=== PATIENT | male | born 1965 | race Caucasian/White ===

== ENCOUNTER → 2018-03-15 14:51 | Outpatient (POV) | payer BC, SELFPAY ==
[2018-03-15 15:13] VITALS: BP 157/88; PULSE 102; RESP 18; O2SAT 98
--- NOTE | 2018-03-16 08:55 | HMH.PMCON ---
Assessment and Plan (1) Left hip pain Current visit: Yes Status: Chronic Category: Medical Code(s): M25.552 - Pain in left hip - Assessment and plan all Dx Assessment and Plan for all problems:: Patient has an appointment with his surgeon this week. Patient states that he was going to be getting a PICC line in order to get long-term antibiotics. Patient and I discussed potential treatment in the future such as DRG stimulation however this will be unable to take place until he is fully healed. Patient states he understands. Patient was given information on this. Patient has been a call us when he needs us. Patient states that his tramadol is taking care of the majority of his pain and his surgeon can write pain medicine as needed. This note was dictated using voice recognition software and may contain errors or omissions HPI - Data of Consult Consult date: 03/15/18 Requesting Physician: Penelope Albrecht APRN Primary Care Provider: Ivon Brewster MD Family Provider: Ivon Brewster MD - Consult Narrative Reason for consult: Back pain and left hip pain History of present illness: Mr. Birch is a 52 year old male who presents for consultation in regards to mainly his left hip pain. Patient has had multiple hip replacements. Patient is currently preparing for long-term antibiotics. Patient has a open wound on his left hip. Patient is going to be seeing the surgeon in regards to this. Patient rates his pain 5 out of 10. Patient is currently being medically managed with tramadol. Patient states that that does help alleviate some of his pain. Patient has had injections in his hip in the past with little to no relief. Patient has done physical therapy and massage therapy. Patient has also had nerve conduction studies in his left leg with a diagnosis of neuropathy. Patient's tried and failed Lortab, anti-inflammatories, gabapentin. CC: Penelope Albrecht APRN [facility] History I have reviewed the patient's past medical history: Yes Medical History: Reports:: Diabetes Mellitus Type 1 Laterality Cases: Left: Total Hip Replacement - *Social History Educational Level: Completed College Smoking Status: Never smoker Alcohol Intake: never Occupational Status: employed Housing: house Household Members: other - Psychiatric History Expresses thoughts of harming self/others: None Suicide Plan Description: No Plan Review of Systems - Review of Systems ROS General: no recent weight change, no fever, no sleep disturbances Respiratory: no cough, no shortness of air, no recurring pulmonary infections Cardiovascular/Peripheral Vascular: No chest pain, No palpitations, no edema, no shortness of breath. Gastrointestinal: no incontinence, normal bowel movements reported Genitourinary: no incontinence Musculoskeletal: Left hip pain Psychiatric: normal mood/ affect Neurological: Weakness in left lower extremity, [denies balance issues] Meds Allergies Allergy/AdvReac Type Severity Reaction Status Date / Time No Known Allergies Allergy Unverified 09/15/17 14:38 Objective Vital signs: Pulse Resp BP Pulse Ox 102 H 18 157/88 98 03/15/18 15:13 03/15/18 15:13 03/15/18 15:13 03/15/18 15:13 Narrative: Physical Exam General: Alert and oriented x3, no acute distress, pleasant and cooperative, [on room air] Lungs: Resps E/U, Symmetrical chest expansion, Eyes: PERRL Musculoskeletal: Flexion and extension of lumbar spine somewhat guarded secondary to pain, deep tendon reflexes normal, strength in upper and lower extremities [5/5], [abnormal gait noted] Skin: Patient has open wound to left hip. It is draining clear fluid. 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
--- NOTE | 2018-03-16 08:59 | P.CONS_ITS ---
Assessment and Plan (1) Left hip pain Current visit: Yes Status: Chronic Category: Medical Code(s): M25.552 - Pain in left hip - Assessment and plan all Dx Assessment and Plan for all problems:: Patient has an appointment with his surgeon this week. Patient states that he was going to be getting a PICC line in order to get long-term antibiotics. Patient and I discussed potential treatment in the future such as DRG stimulation however this will be unable to take place until he is fully healed. Patient states he understands. Patient was given information on this. Patient has been a call us when he needs us. Patient states that his tramadol is taking care of the majority of his pain and his surgeon can write pain medicine as needed. This note was dictated using voice recognition software and may contain errors or omissions HPI - Data of Consult Consult date: 03/15/18 Requesting Physician: Penelope Albrecht APRN Primary Care Provider: Ivon Brewster MD Family Provider: Ivon Brewster MD - Consult Narrative Reason for consult: Back pain and left hip pain History of present illness: Mr. Birch is a 52 year old male who presents for consultation in regards to mainly his left hip pain. Patient has had multiple hip replacements. Patient is currently preparing for long-term antibiotics. Patient has a open wound on his left hip. Patient is going to be seeing the surgeon in regards to this. Patient rates his pain 5 out of 10. Patient is currently being medically managed with tramadol. Patient states that that does help alleviate some of his pain. Patient has had injections in his hip in the past with little to no relief. Patient has done physical therapy and massage therapy. Patient has also had nerve conduction studies in his left leg with a diagnosis of neuropathy. Patient's tried and failed Lortab, anti-inflammatories, gabapentin. CC: Penelope Albrecht APRN [facility] History I have reviewed the patient's past medical history: Yes Medical History: Reports:: Diabetes Mellitus Type 1 Laterality Cases: Left: Total Hip Replacement - *Social History Educational Level: Completed College Smoking Status: Never smoker Alcohol Intake: never Occupational Status: employed Housing: house Household Members: other - Psychiatric History Expresses thoughts of harming self/others: None Suicide Plan Description: No Plan Review of Systems - Review of Systems ROS General: no recent weight change, no fever, no sleep disturbances Respiratory: no cough, no shortness of air, no recurring pulmonary infections Cardiovascular/Peripheral Vascular: No chest pain, No palpitations, no edema, no shortness of breath. Gastrointestinal: no incontinence, normal bowel movements reported Genitourinary: no incontinence Musculoskeletal: Left hip pain Psychiatric: normal mood/ affect Neurological: Weakness in left lower extremity, [denies balance issues] Meds Allergies Allergy/AdvReac Type Severity Reaction Status Date / Time No Known Allergies Allergy Unverified 09/15/17 14:38 Objective Vital signs: Pulse Resp BP Pulse Ox 102 H 18 157/88 98 03/15/18 15:13 03/15/18 15:13 03/15/18 15:13 03/15/18 15:13 Narrative: Physical Exam General: Alert and oriented x3, no acute distress, pleasant and cooperative, [ on room air] Lungs: Resps E/U, Symmetrical chest expansion, Eyes: PERRL
== END ==
PROVIDERS: Family Provider Family Medicine; PCP Family Medicine; Visit Provider Clinical Nurse Specialist Family Health
DX: M25.552 Pain in left hip (principal)
CPT/HCPCS: 99202

== ENCOUNTER → 2019-03-23 13:20 | Outpatient (CLI) | payer MEDICARE, BC, SELFPAY ==
[2019-03-23 13:41] LABS: Blood Urea Nitrogen 16 mg/dL (7-18); Creatinine,Serum 0.95 mg/dL (0.70-1.30); Estimated Glomerular Filt Rate 83 ml/min (>60); GFR (African American) 100 ML/MIN (>60)
--- NOTE | 2019-03-23 14:27 | CT_ITS ---
CT angio LE BI INDICATION: ITS.REASON: SWELLING R LEG ORDERING PHYSICIAN: Laisha Kearney APRN PATIENT AGE: 53 years COMPARISON: None TECHNIQUE: Axial images are obtained without contrast. Sagittal and coronal reformatted images are reviewed as well. All CT scans at the facility use one or more dose reduction, viz: automated exposure control, ma/kV adjustment per patient size (including targeted exams where dose is matched to indication, i.e. head), or iterative reconstruction technique. FINDINGS: CT angiogram shows a few nonstenotic calcified plaque involving the abdominal aorta. The origins of the celiac, SMA and DEVON are patent although there is curvature associated with mild to moderate narrowing at the origin of the celiac artery and this is commonly related to crossing of the transverse ligament and therefore is within normal limits. Renal arteries bilaterally are patent and there are 2 right-sided renal arteries with the smaller more superior accessory renal artery. Pelvic vessels show a few scattered small nonstenotic calcified plaque involving the proximal right internal iliac artery a few on the left side as well. Left lower extremity shows a few small nonstenotic calcified plaques involving the proximal left common femoral artery which shows a normal bifurcation and small plaque at the adductor canal involving the left SFA. There is calcified plaque causing approximately less than 50% stenosis of the proximal popliteal artery. There is a left-sided 3 vessel trifurcation with mild to moderate focal narrowing of the proximal left posterior tibial artery. The remainder of the vessels distally are patent to the ankle and foot area. Right lower extremity shows nonstenotic small calcified plaque at the proximal right common femoral artery. There is a normal bifurcation with nonstenotic small plaque involving the right SFA at the adductor canal. The right popliteal artery and the trifurcation area is unremarkable with a few small nonstenotic plaques involving the proximal small anterior and posterior right-sided tibial arteries. These vessels continue normally to the ankle and foot. Soft tissue show a few nonspecific retroperitoneal lymph nodes in the abdomen largest is 1.3 cm long axis diameter. There is a punctate 5 mm calcific density involving the fundus of the gallbladder area. There is no pericholecystic fluid or biliary dilatation. There are a few sigmoid diverticula without inflammation. There is artifact from the hip prostheses bilaterally. There is a benign fat-containing umbilical hernia. The soft tissues of both lower extremities are normal. The muscle density is normal and there are no areas of subcutaneous edema. The visualized osseous structures are unremarkable. IMPRESSION: Throughout the abdomen and both lower extremities there are small nonstenotic calcite plaques except for less than 50% diameter stenosis at the proximal left popliteal artery. There are bilateral trifurcation vessels which are patent with mild to moderate narrowing of the proximal left history tibial artery. No evidence of high-grade stenosis or occlusion. The curvature and narrowing of the celiac artery is likely related to normal transverse ligament through this area. Nonspecific although benign appearing at this time retroperitoneal lymph nodes. Mesenteric hazy density with lymph nodes also suggest panniculitis. Uncomplicated sigmoid diverticulosis and subtle possible cholelithiasis. Uncomplicated benign fatty umbilical hernia.
== END ==
PROVIDERS: Visit Provider Nurse Practitioner Family
DX: I70.90 Unspecified atherosclerosis (principal)
CPT/HCPCS: 36415; 73701; 82565; 84520; Q9967

== ENCOUNTER → 2019-04-13 09:38 | Outpatient (CLI) | payer MEDICARE, BC, SELFPAY ==
[2019-04-13 10:04] LABS: Blood Urea Nitrogen 14 mg/dL (7-18); Creatinine,Serum 0.78 mg/dL (0.70-1.30); Estimated Glomerular Filt Rate 104 ml/min (>60); GFR (African American) 126 ML/MIN (>60)
--- NOTE | 2019-04-13 10:43 | CT_ITS ---
CT angio UE RT INDICATION: Pain, claudication ITS.REASON: CLAUDICATION ORDERING PHYSICIAN: Laisha Kearney APRN PATIENT AGE: 53 years COMPARISON: None TECHNIQUE: Contrast Used:100ml Optiray 350 patient didn't return for additional imaging on 04/15/2019 were 100 mL's of Optiray 350 was injected for visualization of the arch Oral Contrast: Axial images were obtained. Sagittal and coronal reformatted images are reviewed as well. All CT scans at the facility use one or more dose reduction, viz: automated exposure control, ma/kV adjustment per patient size (including targeted exams where dose is matched to indication, i.e. head), or iterative reconstruction technique. FINDINGS: The aortic arch and great vessels show no significant stenosis. There is calcific plaque at the ostium of the left vertebral artery causing approximately 50% stenosis better seen at the edge of the image on the first injection. The subclavian arteries have an unremarkable appearance as do the axillary and brachial arteries.. Scattered calcific plaque is present in the radial and ulnar arteries on both sides. Vessels are patent. Cannot adequately determine if there is any degree of stenosis in these very small vessels distally based on this technique. There does appear to be occlusion of the distal aspect of the right ulnar artery. IMPRESSION: 1. No central stenotic lesions evident. The subclavian, axillary, brachial arteries are unremarkable. 2. Atheromatous changes involving the distal aspect of the ulnar and radial arteries with occlusion of the most distal aspect of the right ulnar artery.
== END ==
PROVIDERS: Visit Provider Nurse Practitioner Family
DX: I70.213 Atherosclerosis of native arteries of extremities with intermittent claudication, bilateral legs (principal)
CPT/HCPCS: 36415; 73206; 82565; 84520; Q9967

== ENCOUNTER → 2019-04-15 12:49 | Outpatient (CLI) | payer MEDICARE, BC, SELFPAY | PROVIDERS: PCP Family Medicine; Visit Provider Nurse Practitioner Family | DX: R09.89 Other specified symptoms and signs involving the circulatory and respiratory systems (principal) ==

== ENCOUNTER → 2020-12-18 14:17 | Outpatient (CLI) | payer MEDICARE, BC, SELFPAY ==
--- NOTE | 2020-12-18 14:18 | CA_ITS ---
APPROVED REPORT EXAM: Comprehensive 2D, Doppler, and color-flow Echocardiogram Hay Farmer: Brandy Espinoza RT(R) Ht: 5 ft 11 in Wt: 200lbs BSA: 2.11 BP: 120/76 mmHg Indications: palpitations, HTN, DM, hyperlipidemia, AFIB 2D Dimensions LVOT 2.13 cm (M/F) 1.5-2.5 M-Mode Dimensions RVDd 2.82 cm (0.9-2.6) LA Diam 3.79 cm (1.9-4.0) LVDd 4.47 cm (3.5-5.7) Ao Diam 2.90 cm (2.0-3.7) LVDs 3.30 cm (3.5-5.7) IVSd 1.29 cm (0.6-1.1) PWd 0.89 cm (0.6-1.1) EF (Teich) 51.50% FS 26.20% EDV (Teich) 91.00 mL ESV (Teich) 44.10 mL LV Diastology E Decel Time 167.00 (160-240 msec) E/A Ratio 1.2 MED E' 7.00 (< 7 cm/sec) E'/MED E' Ratio 14.49 (>14) LAT E' 9.70 (<10 cm/sec) E/LAT E' Ratio 10.45 (>14) Mitral Valve MV E Max Taz. 101.00 (40-130 cm/s) MV A Velocity 82.00 (40-130 cm/s) E/A Ratio 1.24 MV Decel. Time 167.00 (160-240 ms) MV PHT 49.00 ms Left Ventricle Left atrium is mildly enlarged, left ventricle is normal size, mild concentric left ventricular hypertrophy, visually estimated ejection fraction 55% with no regional wall motion abnormality, grade 1 diastolic dysfunction seen without tissue Doppler evidence of raise left atrial pressure. Right Ventricle Right atrium and right ventricle are normal size and contractility. Aortic Valve Aortic valve is minimally thickened and fibrosed, there is no aortic stenosis or aortic insufficiency. Mitral Valve Mitral valve is grossly normal, there is trace mitral regurgitation. Tricuspid Valve Tricuspid valve grossly normal, there is trace tricuspid regurgitation, tricuspid regurgitation jet velocity is inadequate for calculation of the right ventricular systolic pressure. Pulmonic Valve Pulmonic valve is poorly visualized. Great Vessels Aortic root is normal size. Pericardium No significant pericardial effusion noted. Conclusion 1. Normal left ventricular size, mild concentric left ventricular hypertrophy, visually estimated ejection fraction 55% with no regional wall motion abnormality, grade 1 diastolic dysfunction seen without tissue Doppler evidence of raise left atrial pressure. 2. Trace mitral and tricuspid regurgitation. 3. No significant pericardial effusion noted. Electronically signed by : Nakul Roberto, 12/18/2020 19:42:47
== END ==
PROVIDERS: PCP Family Medicine; Visit Provider Urology
DX: R00.2 Palpitations (principal)
CPT/HCPCS: 93306

== ENCOUNTER → 2021-09-09 10:57 | Outpatient (CLI) | payer MEDICARE, BC, SELFPAY | PROVIDERS: Visit Provider Surgery | DX: Z01.812 Encounter for preprocedural laboratory examination (principal); Z11.52 Encounter for screening for COVID-19; Z12.11 Encounter for screening for malignant neoplasm of colon | CPT/HCPCS: C9803; U0003; U0005 ==

== ENCOUNTER 2021-09-11 11:00 | Day surgery (SDC) | payer MEDICARE, BC, SELFPAY ==
[2021-09-06 14:04] VITALS: BMI 27.8
[2021-09-11] VITALS (8 sets, daily range): BP systolic 90–162; BP diastolic 52–87; PULSE 71–86; RESP 12–18; TEMP 36.1–36.2; O2SAT 91–98
--- NOTE | 2021-09-11 10:50 | P.PN_ITS ---
[facility] Anesthesia Checklist - Structural Data Planned Operative Procedure/s: Colonoscopy Consent for Planned Operative Procedure(s) Verified: Yes - NPO Status Verified Time NPO: 00:00 - Airway Assessment C-Spine Mobility Assessed: Yes TMJ Mobility Assessed: Yes Dentition: Good Dentition - Neurological Assessment Level of Consciousness: Awake Hx Seizures: No Numbness or tingling in extremities: No - Anesthesia Plan Anesthesia Risk discussed: Yes Anesthesia Plan: Verified ASA Class: III Anesthesia Type: MAC [facility] History I have reviewed the patient's past medical history: Yes Medical History: Reports:: Atrial Fibrillation, Diabetes Mellitus Type 2, Hypertension Denies:: Cancer, Diabetes Mellitus Type 1, Internal Pacemaker, MRSA *Have you ever received a pneumonia vaccine?: No *Have you received a flu vaccine this season?: No Anesthesia experience/problems:: None Laterality Cases: Left: Total Hip Replacement Other Surgeries: Yes: Colonoscopy. No: Pacemaker Amputation: No - *Social History Last grade of school completed: 11th or 12th Smoking Status: Never smoker Alcohol Intake: never Alcohol Intake Frequency:: holidays/special occasions only Substance Use Type: denies use *Occupational Status:: retired Housing: house Household Members: spouse *Travel in the last 8 weeks: None Family Hx:: No significant family history
--- NOTE | 2021-09-11 12:07 | HMH.SCOPE ---
- Procedure: Date: 09/11/21 Patient Date of :: 1965 Procedure Performed:: Colonoscopy to terminal ileum with polypectomy by snare x2 Indications:: Patient is a pleasant 55-year-old male who had been referred by Madison Kearney mainly for umbilical hernia but also for initial screening colonoscopy. He lives in [place]. He has had an umbilical hernia for about 7 or 8 years. He is retired from [employer]. He states that he occasionally has some discomfort with this. It is somewhat uncomfortable postprandially. Patient states that he needs a colonoscopy. Never had prior colonoscopy. Denies symptoms. Did undergo Cologuard at some point which was negative. Performing Provider:: Cory Junior MD Referring Provider:: Madison Kearney Sedation:: MAC sedation Procedure:: Patient was taken to endoscopy procedure room. He was positioned in lateral decubitus position. Adequate intravenous sedation was achieved with anesthesia titration of propofol. Digital examination was performed which revealed uniformly enlarged prostate. Variable stiffness Olympus colonoscope was inserted via the anus. It was advanced to the cecum. Colonic preparation was good. There was minimal amount of particulate liquid stool which was suctioned free and irrigated. Ileocecal valve and appendiceal orifice were clearly identified. Colonoscope was slowly withdrawn through the colon with careful surveillance. In the proximal transverse colon there was a small polyp removed with cold cutting snare. Adjacent to this there was a subtle diminutive polyp removed with cold snare. These were sent as transverse colon polyp x2. Colonoscope was withdrawn through the remainder of the colon. He had some degree of pierce diverticulosis. Retroflexion within the rectum revealed no evidence of any pathologic internal hemorrhoids. Colonoscope was withdrawn. Findings:: Diverticulosis Small transverse colon polyp x2 Recommendations:: I will follow-up on histopathology and likely would plan for repeat colonoscopy 3 to 5 years pending pathology. I will see him back in the office and discuss proceeding with umbilical hernia repair. Tentative plan had been for open umbilical hernia repair. Complications:: None immediately apparent Estimated blood obtained (mL): 2
[2022-06-26 10:55] LABS: POC Glucose,Bedside 182 (70-110)
== END 2021-09-11 12:50 | disposition home or self-care (01) ==
LOC: OUTP 11:02
PROVIDERS: PCP Nurse Practitioner Family; Visit Provider Surgery
PROC: 0DJD8ZZ Inspection of Lower Intestinal Tract, Via Natural or Artificial Opening Endoscopic (ICD-10-PCS; principal; 2021-09-11 12:00)
DX: Z12.11 Encounter for screening for malignant neoplasm of colon (principal); K42.9 Umbilical hernia without obstruction or gangrene; K63.5 Polyp of colon; N40.0 Benign prostatic hyperplasia without lower urinary tract symptoms; K57.32 Diverticulitis of large intestine without perforation or abscess without bleeding; I48.91 Unspecified atrial fibrillation; E11.9 Type 2 diabetes mellitus without complications; I10 Essential (primary) hypertension; Z79.82 Long term (current) use of aspirin; Z79.84 Long term (current) use of oral hypoglycemic drugs; Z79.4 Long term (current) use of insulin; Z79.899 Other long term (current) drug therapy
CPT/HCPCS: 45385; 82962; 88305

== ENCOUNTER → 2021-10-07 09:59 | Outpatient (CLI) | payer MEDICARE, BC, SELFPAY ==
[2021-10-07 10:20] LABS: Basophils % 0.5 % (0.1-2.0); Eosinophils # 0.2 K/mm3 (0.0-0.4); Eosinophils % 3.6 % (0.1-12.0); Hematocrit 50.5 % (42.0-52.0); Hemoglobin 16.2 g/dL (14.1-18.0); Lymphocytes # 1.3 K/mm3 (0.7-4.5); Lymphocytes % 23.7 % (10-50); Mean Corpuscular HGB Conc 32.1 g/dL (31.8-35.4); Mean Corpuscular Hemoglobin 28.5 pg (27.0-31.2); Mean Corpuscular Volume 88.7 fl (80-94); Mean Platelet Volume 7.9 fl (7.4-10.4); Monocytes # 0.4 K/mm3 (0.1-1.0); Monocytes % 7.5 % (1.7-9.3); Neutrophils # 3.4 K/mm3 (1.8-7.8); Neutrophils % 64.7 % (37.0-80.0); Platelet Count 169 K/mm3 (142-424); Red Cell Distribution Width 14.7 % (11.5-17.5); White Blood Count 5.3 K/mm3 (4.8-10.8)
[2021-10-07 11:12] LABS: Anion Gap 10.9 mEq/L (5-15); Blood Urea Nitrogen 12 mg/dl (9-20); Calcium 9.1 mg/dl (8.4-10.2); Carbon Dioxide 33 mmol/L (22.0-30.0); Chloride 100 mmol/L (98-107); Estimated Glomerular Filt Rate 117 ml/min (>60); GFR (African American) 142 ML/MIN (>60); Glucose 114 mg/dl (74-100); Potassium 3.9 mmoL/L (3.5-5.1); Sodium 140 mmol/L (136-145)
== END ==
PROVIDERS: PCP Nurse Practitioner Family; Visit Provider Surgery
DX: K42.9 Umbilical hernia without obstruction or gangrene (principal); M25.552 Pain in left hip; Z01.812 Encounter for preprocedural laboratory examination; Z11.52 Encounter for screening for COVID-19
CPT/HCPCS: 36415; 80048; 85025; C9803; U0003; U0005

== ENCOUNTER 2021-10-08 08:19 | Day surgery (SDC) | payer MEDICARE, BC, SELFPAY ==
[2021-10-07 09:05] VITALS: BMI 28.0
[2021-10-08] VITALS (11 sets, daily range): BP systolic 117–156; BP diastolic 63–85; PULSE 79–88; RESP 12–18; TEMP 36.3–43; O2SAT 91–96
--- NOTE | 2021-10-08 08:30 | HMH.ANESCL ---
[facility] Anesthesia Checklist - Patient Identification Patient Identification: Arm Band - Structural Data Admitted From: Home Planned Operative Procedure/s: Umbilical hernia repair Consent for Planned Operative Procedure(s) Verified: Yes - NPO Status Verified Time NPO: 00:00 - Airway Assessment C-Spine Mobility Assessed: Yes TMJ Mobility Assessed: Yes Dentition: Good Dentition - Neurological Assessment Level of Consciousness: Awake Hx Seizures: No Numbness or tingling in extremities: No - Anesthesia Plan Anesthesia Risk discussed: Yes Anesthesia Plan: Verified ASA Class: III Anesthesia Type: General [facility] History I have reviewed the patient's past medical history: Yes Medical History: Reports:: Anxiety, Atrial Fibrillation, Diabetes Mellitus Type 2, Hypertension Denies:: Cancer, Diabetes Mellitus Type 1, Internal Pacemaker, MRSA, Seizures *Have you ever received a pneumonia vaccine?: No *Have you received a flu vaccine this season?: No Anesthesia experience/problems:: None Laterality Cases: Bilateral: Total Hip Replacement Other Surgeries: Yes: Colonoscopy. No: Pacemaker Amputation: No Fractures: No - *Social History Last grade of school completed: High school graduate Smoking Status: Never smoker Alcohol Intake: current Alcohol Intake Frequency:: a few times a week Substance Use Type: denies use *Occupational Status:: retired Housing: house Household Members: spouse, family *Travel in the last 8 weeks: None Family Hx:: No significant family history
--- NOTE | 2021-10-08 10:27 | P.OP_ITS ---
Date of procedure: 10/08/21 Pre-op Diagnosis:: Umbilical hernia Post-op Diagnosis:: Same Procedure performed:: Open repair of umbilical hernia using Bard Ventralex mesh (size small 4.3 cm) Surgeon:: Cory Junior MD WEAVING INSPECTOR:: Lorri Garcia Anesthesia: GETA Estimated blood loss (mL): 5 Clinical Note:: Patient is a pleasant 55-year-old male who had been referred by Madison Kearney mainly for umbilical hernia but also for initial screening colonoscopy. He lives in [place]. He has had an umbilical hernia for about 7 or 8 years. He is retired from [employer]. He states that he occasionally has some discomfort with this. It is somewhat uncomfortable postprandially. Did undergo Cologuard at some point which was negative. Colonoscopy was performed on 09/11/2021. He had a couple of tubular adenomas removed. Operative findings:: He had a umbilical hernia with a defect of about 10 or 12 mm. Reducing the herniated fatty tissues was somewhat difficult initially. Operative note:: Patient was taken to the operating room. He was given preoperative intravenous antibiotics. In the operating room he was placed in a supine position. General anesthesia was induced via endotracheal tube. Abdomen was prepped and draped in the standard surgical fashion. Under anesthesia the hernia was able to be reduced with some effort. Underlying defect appeared to measure about 10 to 12 mm. Subumbilical skin incision was made. Dissection was carried down through subcutaneous tissues. Hernia sac was encountered and opened. Peritoneum of the hernia sac was dissected free from the umbilical subdermis. Extraneous peritoneum of the hernia sac was dissected free to the fascial edges. Fascial edges were cleaned free anteriorly and posteriorly. Small sized Bard Ventralex mesh measuring 4.3 cm was rolled and inserted into the peritoneal cavity posterior to the fascial defect. It was positioned. There appeared to be good fascial overlap. The tails of the mesh were sutured superiorly and inferiorly to the fascial edges with 2-0 Prolene. The tails were then cut flush with the fascia. Fascia was closed over the mesh with several interrupted 0 Ethibond sutures. Local anesthetic was infiltrated. Umbilical subdermis was then reapproximated to the fascia with several interrupted 2-0 Vicryl. Subdermal tissues were closed with interrupted 2-0 Vicryl. Skin was closed with 4-0 Monocryl in a running subcuticular fashion. Clean dry sterile dressing was applied. Condition: stable Disposition: PACU Specimens:: Hernia sac Complications:: None immediately apparent
--- NOTE | 2021-10-08 10:32 | HMH.ANESI ---
[facility] Anesthesia Record Part I Intake, IV Amount: 450 Estimated blood loss (mL): 5 Urine output (mL): 0 Blood Pressure: 131/73 SaO2: 92 Pulse Rate: 85 Respiratory Rate: 12 Temperature: 99.2 F Patient is:: Drowsy, Oral/Nasal airway Stable to PACU at:: 10:40
[2021-10-09 17:10] VITALS: BP 117/63; PULSE 87; TEMP 37.3
--- NOTE | 2021-10-09 17:10 | P.PN_ITS ---
[facility] Anesthesia Record Part II Discharge Time: 11:00 Destination: Home PACU nurse assessment reviewed?: Yes Patient Condition:: Good Anesthesia Complications:: None Swallowing reflex intact?: Yes Cyanosis?: No Blood Pressure: 117/63 Pulse Rate: 87 Temperature: 99.2 F Mental Status: Alert & Oriented Pain level:: 0 Nausea and/or vomitting:: None Intake, IV Amount: 0
[2021-10-10 10:19] LABS: POC Glucose,Bedside 97 (70-110)
[2022-06-26 10:56] LABS: POC Glucose,Bedside 80 (70-110)
== END 2021-10-08 11:36 | disposition home or self-care (01) ==
LOC: OR 08:22
PROVIDERS: PCP Nurse Practitioner Family; Visit Provider Surgery
DX: K42.9 Umbilical hernia without obstruction or gangrene (principal); E11.9 Type 2 diabetes mellitus without complications; I10 Essential (primary) hypertension; F41.9 Anxiety disorder, unspecified; I48.91 Unspecified atrial fibrillation; Z79.82 Long term (current) use of aspirin; Z79.4 Long term (current) use of insulin; Z79.899 Other long term (current) drug therapy
CPT/HCPCS: 49585; 82962; 88302; 96374; C1781; J2405

== ENCOUNTER → 2022-03-18 11:12 | Outpatient (CLI) | payer MEDICARE, BC, SELFPAY ==
[2022-03-18 12:37] LABS: Prostate Specific Ag Screen 0.7 ng/ml (0.0-4.0)
[2022-03-21 15:10] LABS: Testosterone, Total, LC/MS 287.5 ng/dL (264.0-916.0); Testosterone,Free 7.2 pg/mL (7.2-24.0)
== END ==
PROVIDERS: PCP Nurse Practitioner Family; Visit Provider Urology
DX: E29.1 Testicular hypofunction (principal); Z12.5 Encounter for screening for malignant neoplasm of prostate
CPT/HCPCS: 36415; 84402; 84403; G0103

== ENCOUNTER → 2022-04-30 10:44 | Outpatient (CLI) | payer MEDICARE, BC, SELFPAY | PROVIDERS: PCP Nurse Practitioner Family; Visit Provider Surgery | DX: Z01.812 Encounter for preprocedural laboratory examination (principal); Z20.822 Contact with and (suspected) exposure to COVID-19; Z13.810 Encounter for screening for upper gastrointestinal disorder; R13.10 Dysphagia, unspecified | CPT/HCPCS: C9803; U0003; U0005 ==

== ENCOUNTER 2022-05-02 10:44 | Day surgery (SDC) | payer MEDICARE, BC, SELFPAY ==
[2022-04-30 09:59] VITALS: BMI 27.8
--- NOTE | 2022-05-02 10:52 | HMH.GSHP ---
HPI HPI: Patient is a 56-year-old male referred by Madison Kearney for EGD. He states that for 2 or 3 years he has had some occasional dysphagia. This is intermittent. He describes it feeling like food becomes transiently stuck and has difficulty passing. 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 He does have some dyspepsia and heartburn symptoms. He does state that he believes he may have undergone EGD about 20 years ago. I had performed umbilical hernia repair on him earlier this year. He is on famotidine [facility] History I have reviewed the patient's past medical history: Yes Medical History: Reports:: Anxiety, Atrial Fibrillation, BPH, Diabetes Mellitus Type 2, Hypertension, MRSA Denies:: Cancer, Diabetes Mellitus Type 1, Internal Pacemaker, Seizures *Have you ever received a pneumonia vaccine?: No *Have you received a flu vaccine this season?: No Other Medical History: Denies: Blood Transfusion Reaction Laterality Cases: Bilateral: Total Hip Replacement Other Surgeries: Yes: No Previous Surgery, Colonoscopy, Hernia Repair. No: Pacemaker Amputation: No Fractures: No - *Social History Last grade of school completed: High school graduate Smoking Status: Never smoker Alcohol Intake: current Alcohol Intake Frequency:: holidays/special occasions only Substance Use Type: denies use *Occupational Status:: retired Housing: house Household Members: spouse, family *Travel in the last 8 weeks: Inside the [facility] - Psychiatric History Pschychiatric History:: Reports:: Anxiety Family Hx:: No significant family history Review of Systems - Review of Systems Review of systems:: pertinent systems reviewed and negative unless documented below Meds Home Medications Medication Instructions Recorded Confirmed Type duloxetine 30 mg capsule,delayed 90 mg PO DAILY cap 05/21/20 04/30/22 History release famotidine 40 mg tablet 40 mg PO DAILY tab 05/21/20 04/30/22 History hydroxychloroquine 200 mg tablet 200 mg PO DAILY tab 05/21/20 04/30/22 History leflunomide 20 mg tablet 20 mg PO DAILY tab 05/21/20 04/30/22 History semaglutide 1 mg/dose (2 mg/1.5 1 mg SQ QWEEK ml 05/21/20 04/30/22 History mL) subcutaneous pen injector Aspirin [Aspirin 81mg EC Tab] 81 mg PO DAILY 09/11/21 04/30/22 History Doxycycline Hyclate [Doxycycline 100 mg PO DAILY 10/08/21 04/30/22 History 150mg Tablet] Empagliflozin [Jardiance] 25 mg PO DAILY 10/08/21 04/30/22 History L.acidoph,Paracasei, B.lactis 1 each PO DAILY 10/08/21 04/30/22 History [Probiotic] Multivit-Min/FA/Lycopen/Lutein 1 each PO DAILY 10/08/21 04/30/22 History [Centrum Silver Men Tablet] tramadol 50 mg tablet 50 mg PO Q8H tab 03/18/22 04/30/22 History losartan 100 mg tablet 100 mg PO DAILY #90 tab 04/30/22 04/30/22 Rx nebivolol 10 mg tablet 10 mg PO DAILY #90 tab 04/30/22 04/30/22 Rx rosuvastatin 20 mg tablet 20 mg PO DAILY #90 tab 04/30/22 04/30/22 Rx Allergies Allergy/AdvReac Type Severity Reaction Status Date / Time No Known Allergies Allergy Verified 04/30/22 11:36 Exam I & O for Last 24 hours: Intake & Output 04/29/22 04/30/22 05/01/22 05/02/22 11:59 11:59 11:59 11:59 Weight 200 lb - Constitutional no acute distress - *Routine HEENT Exam Head: Present: normocephalic Eye: Present: EOMI, PERRL ENT: Present: mucous membranes moist - *Routine Neck Exam Present: supple. Absent: lymphadenopathy - *Routine Respiratory Exam Present: CTA bilaterally - *Routine Cardiovascular Exam Present: RRR - *Routine Abdominal Exam Present: soft, normoactive bowel sounds. Absent: tenderness - *Routine Rectal Exam Rectal:: deferred - *Routine Genitalia Exam Genitalia:: deferred - *Routine Extremities Exam Absent: cyanosis, clubbing, edema - *Routine Skin Exam Present: warm. Absent: rash - *Routine Neurological Exam Present: alert, oriented X3 Assessment and Plan - Assessment and
--- NOTE | 2022-05-02 10:55 | HMH.ANESCL ---
[facility] Anesthesia Checklist - Patient Identification Patient Identification: Arm Band - Structural Data Admitted From: Home Planned Operative Procedure/s: EGD Consent for Planned Operative Procedure(s) Verified: Yes - NPO Status Verified Time NPO: 00:00 - Additional verifications Anesthesia Reactions: No Hx Blood Transfusions: No Blood Transfusion Reaction: No - Airway Assessment C-Spine Mobility Assessed: Yes TMJ Mobility Assessed: Yes Dentition: Good Dentition - Neurological Assessment Level of Consciousness: Awake Hx Seizures: No Numbness or tingling in extremities: No - Anesthesia Plan Anesthesia Risk discussed: Yes Anesthesia Plan: Verified ASA Class: III Anesthesia Type: MAC [facility] History I have reviewed the patient's past medical history: Yes Medical History: Reports:: Anxiety, Atrial Fibrillation, BPH, Diabetes Mellitus Type 2, Hypertension, MRSA Denies:: Cancer, Diabetes Mellitus Type 1, Internal Pacemaker, Seizures *Have you ever received a pneumonia vaccine?: No *Have you received a flu vaccine this season?: No Other Medical History: Denies: Blood Transfusion Reaction Anesthesia experience/problems:: None Laterality Cases: Bilateral: Total Hip Replacement Other Surgeries: Yes: No Previous Surgery, Colonoscopy, Hernia Repair. No: Pacemaker Amputation: No Fractures: No - *Social History Last grade of school completed: High school graduate Smoking Status: Never smoker Alcohol Intake: current Alcohol Intake Frequency:: holidays/special occasions only Substance Use Type: denies use *Occupational Status:: retired Housing: house Household Members: spouse, family *Travel in the last 8 weeks: Inside the [place] - Psychiatric History Pschychiatric History:: Reports:: Anxiety Family Hx:: No significant family history
[2022-05-02 10:57] VITALS: BP 166/95; PULSE 89; RESP 18; TEMP 36.2; O2SAT 96
[2022-05-02 11:10] VITALS: O2SAT 96
[2022-05-02 11:27] VITALS: BP 98/63; PULSE 82; RESP 16; TEMP 36.2; O2SAT 93
--- NOTE | 2022-05-02 11:28 | P.PCN_ITS ---
- Procedure: Date: 05/02/22 Patient Date of :: 1965 Procedure Performed:: Esophagogastroduodenoscopy with biopsies and dilatation to 20 mm Indications:: Patient is a 56-year-old male referred by Madison Kearney for EGD. He states that for 2 or 3 years he has had some occasional dysphagia. This is intermittent. He describes it feeling like food becomes transiently stuck and has difficulty passing. 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 He does have some dyspepsia and heartburn symptoms. He does state that he believes he may have undergone EGD about 20 years ago. I had performed umbilical hernia repair on him earlier this year. He is on famotidine Performing Provider:: Cory Junior MD Referring Provider:: Madison Kearney Sedation:: MAC sedation Procedure:: Patient was taken to endoscopy procedure room. He was positioned in lateral decubitus position. Adequate intravenous sedation was achieved with anesthesia titration of propofol. Olympus endoscope was inserted via the oropharynx. Esophagus was cannulated. There was some evidence of possible spasticity of the esophagus. Gastroesophageal junction was encountered at approximately 40 cm from the incisors. There was evidence of some minor mucosal narrowing with inflammation and possible Schatzki's ring. Stomach was cannulated and insufflated. There was some evidence of moderate diffuse gastropathy and gastritis. Retroflexion revealed a very tiny sliding hiatal hernia. Gastric antral mucosal biopsy was obtained for CLOtest for H. pylori. Pylorus was traversed. Duodenum appeared unremarkable. Endoscope was withdrawn into the stomach and additional biopsy was obtained for histopathologic analysis. A couple biopsies were obtained at the gastroesophageal junction. Distal esophageal biopsies were obtained. Elation pneumatic balloon dilator was used to dilate the esophagus sequentially from 18 to 20 mm. However, there did not appear to be appreciable mucosal narrowing. Stomach was desufflated and the endoscope was withdrawn. Findings:: Possible spasticity of the esophagus Possible beginnings of Schatzki's ring with gastroesophageal junction at 40 cm Dilatation performed of the gastroesophageal junction to 20 mm Moderate diffuse gastropathy/gastritis Recommendations:: Plan to follow-up on the H. pylori status and biopsies. Treat H. pylori if appropriate. If symptoms persist may benefit from switching from H2 clarke to proton pump inhibitor such as Nexium. Complications:: None immediately apparent Estimated blood obtained (mL): 2
[2022-05-02 11:37] VITALS: BP 131/81; PULSE 85; RESP 16; O2SAT 95
[2022-05-02 11:47] VITALS: BP 123/72; PULSE 86; RESP 16; O2SAT 95
[2022-05-02 11:53] LABS: POC Glucose,Bedside 224 (70-110)
[2022-05-02 11:57] VITALS: BP 141/85; PULSE 83; RESP 16; O2SAT 96
== END 2022-05-02 11:57 | disposition home or self-care (01) ==
LOC: OUTP 10:46
PROVIDERS: PCP Nurse Practitioner Family; Visit Provider Surgery
PROC: 0DJ08ZZ Inspection of Upper Intestinal Tract, Via Natural or Artificial Opening Endoscopic (ICD-10-PCS; CPT 43235; principal; 2022-05-02 13:30)
DX: R13.10 Dysphagia, unspecified (principal); R10.13 Epigastric pain; E11.9 Type 2 diabetes mellitus without complications; N40.0 Benign prostatic hyperplasia without lower urinary tract symptoms; I48.91 Unspecified atrial fibrillation
CPT/HCPCS: 43239; 43249; 82962; 87339; 88305; C1726; J2704

== ENCOUNTER → 2023-01-07 13:47 | Outpatient (CLI) | payer MEDICARE, BC, SELFPAY ==
--- NOTE | 2023-01-07 13:53 | US_ITS ---
FINAL REPORT CLINICAL HISTORY: HTN, DM, hyperlipidemia, previous angioplasty, bilateral claudication, bilateral rest pain. COMPARISON: None FINDINGS: ANKLE-BRACHIAL PRESSURE INDICES Pressure indices are as follows: RIGHT LOWER EXTREMITY: Ankle-brachial pressure index: 0.89 Comments: Borderline LEFT LOWER EXTREMITY: Ankle-brachial pressure index: 0.72 Comments: Mild disease IMPRESSION: Borderline vascular disease on the right. Mild vascular disease on the left. Reviewed, Interpreted and Dictated by Cory Galvez III, MD Transcribed by Edwina Arizmendi Authenticated and [facility]
== END ==
PROVIDERS: PCP Nurse Practitioner Family; Visit Provider Nurse Practitioner Family
DX: M79.661 Pain in right lower leg (principal); M79.662 Pain in left lower leg; I70.213 Atherosclerosis of native arteries of extremities with intermittent claudication, bilateral legs; L65.9 Nonscarring hair loss, unspecified
CPT/HCPCS: 93923

== ENCOUNTER 2023-01-30 08:22 | Day surgery (SDC) | payer MEDICARE, BC, SELFPAY ==
[2023-01-30] VITALS (11 sets, daily range): BP systolic 139–170; BP diastolic 71–94; PULSE 74–85; RESP 16–20; O2SAT 92–98; BMI 29.5
--- NOTE | 2023-01-30 07:10 | IR_ITS ---
APPROVED REPORT PROCEDURES Right femoral artery access Catheter placed in the abdominal aorta Abdominal aortogram Repositioning of the catheter in the abdominal aorta Bilateral iliofemoral runoff Catheter placement in the left superficial femoral artery Left superficial femoral artery with unilateral runoff to the left foot Catheter placement in the right external iliac artery Right external iliac artery retrograde angiogram with unilateral runoff to the right foot INDICATION Abnormal MILAGROS, [place] claudication class III, Peripheral artery disease, Severe hypertension suspect renovascular hypertension, Suspect renal artery stenosis, Informed consent was obtained prior to the procedure. COMPLICATIONS None Estimated Blood Loss: Less than 10 ML TECHNIQUE 1% lidocaine used anesthetize the right groin the right femoral artery is accessed via the central technique and a 5 Bengali sheath is placed in the right femoral artery pigtail catheter was advanced to the abdominal aorta abdominal aortography was performed. The catheter was then repositioned and bilateral iliofemoral runoff was performed down to the level of the proximal calf. For some reason the technical error prevented the runoff from going to the foot. The JR4 catheter was advanced over an advantage wire and the wire was placed into the left superficial femoral artery with a JR4 catheter was advanced. Selective angiography was performed in an antegrade manner and then runoff to the left foot was performed. Following this this catheter was pulled back to the right external iliac artery where right retrograde external iliac artery angiography was performed with unilateral runoff to the right foot. At the end the procedure the apparatus was removed the patient was transferred to the postop putting in stable condition for sheath removal ANGIOGRAPHIC RESULTS Abdominal aorta is normal Renal arteries are singular normal Mesenteric arteries are widely patent Bilateral common internal and external iliac arteries are normal Bilateral common femoral arteries normal Bilateral profunda femoris arteries are normal Bilateral superficial femoral arteries are normal Bilateral popliteal arteries are normal There is three-vessel runoff below the knee on the left leg There is two-vessel runoff below the knee on the right leg IMPRESSION Normal renal arteries Normal mesenteric arteries No evidence of macrovascular atherosclerotic plaque throughout the iliofemoral's and runoff to the ankles. Slow flow down both calves to suggest endothelial dysfunction PLAN 1. Risk factor modification 2. Medical management 3. Physical therapy Electronically signed by : Juan Martel MD 01/30/2023 13:58:56
[2023-01-30 08:53] LABS: Basophils % 0.6 % (0.1-2.0); Eosinophils # 0.2 K/mm3 (0.0-0.4); Eosinophils % 3.2 % (0.1-12.0); Hematocrit 46.6 % (42.0-52.0); Lymphocytes # 1.4 K/mm3 (0.7-4.5); Lymphocytes % 27.7 % (10-50); Mean Corpuscular HGB Conc 32.2 g/dL (31.8-35.4); Mean Corpuscular Volume 86.9 fl (80-94); Monocytes # 0.5 K/mm3 (0.1-1.0); Monocytes % 10.1 % (1.7-9.3); Neutrophils # 2.8 K/mm3 (1.8-7.8); Neutrophils % 58.4 % (37.0-80.0); Platelet Count 170 K/mm3 (142-424); Red Blood Count 5.36 M/mm3 (4.60-6.20); Red Cell Distribution Width 14.1 % (11.5-17.5); White Blood Count 4.8 K/mm3 (4.8-10.8)
[2023-01-30 08:56] LABS: Chloride 96 mmol/L (98-107); Sodium 136 mmol/L (136-145)
[2023-01-30 08:59] LABS: Blood Urea Nitrogen 10 mg/dl (9-20); Creatinine Clearance Estimated 158 mL/min (50-200); Estimated Glomerular Filt Rate 116 ml/min (>60); GFR (African American) 141 ML/MIN (>60)
[2023-01-30 09:00] LABS: Calcium 8.7 mg/dl (8.4-10.2); Carbon Dioxide 30 mmol/L (22.0-30.0); Glucose 233 mg/dl (74-100)
== END 2023-01-30 14:27 | disposition home or self-care (01) ==
PROVIDERS: PCP Nurse Practitioner Family; Visit Provider Internal Medicine
DX: I15.0 Renovascular hypertension (principal); E11.9 Type 2 diabetes mellitus without complications; I87.1 Compression of vein; E78.2 Mixed hyperlipidemia; R94.31 Abnormal electrocardiogram [ECG] [EKG]; Z79.4 Long term (current) use of insulin; I70.213 Atherosclerosis of native arteries of extremities with intermittent claudication, bilateral legs; I10 Essential (primary) hypertension; Z79.899 Other long term (current) drug therapy
CPT/HCPCS: 36247; 75625; 80048; 85025; 99152; C1725; C1769; C1894; J1644

== ENCOUNTER 2023-10-14 13:11 | Outpatient (CLI) | payer MEDICARE, BC, SELFPAY ==
[2023-10-14 14:01] LABS: Alanine Aminotransferase 40 U/L (12-78); Albumin Level 4.1 g/dl (3.5-5.0); Albumin/Globulin Ratio 1.6 (1.1-1.8); Alkaline Phosphatase 98 U/L (38-126); Anion Gap 11.2 mEq/L (5-15); Aspartate Amino Transferase 42 U/L (17-59); Bilirubin,Total 1.7 mg/dl (0.2-1.3); Blood Urea Nitrogen 13 mg/dl (9-20); Calcium 8.3 mg/dl (8.4-10.2); Carbon Dioxide 30 mmol/L (22.0-30.0); Chloride 101 mmol/L (98-107); Estimated Glomerular Filt Rate 116 ml/min (>60); GFR (African American) 141 ML/MIN (>60); Globulin 2.6 g/dL (1.3-3.2); Glucose 157 mg/dl (74-100); Potassium 4.2 mmoL/L (3.5-5.1); Sodium 138 mmol/L (136-145); Total Protein,Serum 6.7 g/dl (6.3-8.2)
[2023-10-14 17:07] LABS: Thyroid Stimulating Hormone 1.59 uIU/mL (0.465-4.68)
== END 2023-10-14 23:59 ==
LOC: LAB.DROPOF 13:12
PROVIDERS: PCP Nurse Practitioner Family; Visit Provider Nurse Practitioner Family
DX: E11.9 Type 2 diabetes mellitus without complications (principal); E78.5 Hyperlipidemia, unspecified; E55.9 Vitamin D deficiency, unspecified; I10 Essential (primary) hypertension; Z68.29 Body mass index [BMI] 29.0-29.9, adult; Z79.4 Long term (current) use of insulin; Z79.85 Long-term (current) use of injectable non-insulin antidiabetic drugs
CPT/HCPCS: 80053; 82306; 84443

== ENCOUNTER 2024-01-18 10:08 | Outpatient (CLI) | payer MEDICARE, BC, SELFPAY ==
--- OUTSIDE RECORDS SUMMARY | 2024-01-18 10:11 | XMS_ITS | Continuity of Care Document ---
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 Name Role Phone Baron Carter DO Unavailable Unavailable Allergies, Adverse Reactions, Alerts Substance Reaction Status Criticality No Known Allergies Active No Inform ation Medications Medication Instructions Dosage Effective Dates (start - stop) Status Comments Plaquenil 200 mg tablet take 1 tablet by oral route every day 200 MG - Active Arava 20 mg tablet TAKE ONE TABLET BY MOUTH DAILY - Active aripiprazole 5 mg tablet take 1 tablet by oral route every day 5 MG - Active Novolog Flexpen U-100 Insulin aspart 100 unit/mL (3 mL) subcutaneous inject by subcutaneous route per prescriber's instructions. Insulin dosing requires individualization. as needed 0.00 - Active Ozempic 1 mg/dose (2 mg/1.5 mL) subcutaneous pen injector inject (1MG) by subcutaneous route every week on the same day of each week, in the abdomen, thighs, or upper arm rotating injection sites - Active famotidine 40 mg tablet take 1 tablet by oral route every day at bedtime 40 MG - Active duloxetine 30 mg capsule,delayed release take 3 capsule by oral route every day 90 MG - Active Aspir-81 mg tablet,delayed release take 1 tablet by oral route every day - Active doxycycline hyclate 100 mg tablet take 1 tablet by oral route every day 100 MG - Active losartan 100 mg tablet take 1 tablet by oral route every day 100 MG - Active PROBIOTIC (unknown strength) take 1 capsule by oral route every bedtime Not Available - Active Bystolic 5 mg tablet take 1 tablet by oral route every day 5 MG - Active rosuvastatin 20 mg tablet take 1 tablet by oral route every day 20 MG - Active Plaquenil 200 mg tablet take 1 tablet by oral route every day 200 MG - No Longer Active Arava 20 mg tablet TAKE ONE TABLET BY MOUTH DAILY - No Longer Active Procedures Procedure Date Office Visit Level IV Office Visit Level IV Office Visit Level IV Office Visit Level IV Office Visit Level IV Office Visit Level IV Office Visit Level IV Office Visit Level IV Office Visit Level IV Office Visit Level IV Office Visit Level IV Office Visit Level IV New Office Visit Level IV EL-anti-CCP/2 MICROSOMAL ANTIBODY Dna Antb 1 Stranded Dna Antb Nulato/2 Stranded Sm,[employer]ICE [employer]Y 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/Sm,SSA,SSB,Scl-70,chrom,centromer Tb Cell Mediated Antign Respnse Gamma In Rheumatoid Factor Samy RF/3 IgM 020 THYROGLOBULIN ANTIBODY RF/3 IgG/IgA 25 Hydroxy Includes Fractions If Perform Advance Directives Directive Yes / No Effective Date File Name No Information Encounters Encounter Description Practice Location Reason(s) For Visit Diagnoses Date Provider Providers Copied on Encounter Office Visit Level IV [facility] [address] [facility] [address], [place], [place], [id number], [place] tel:[phone] [facility] Follow Up of Rheumatoid Arthritis (chief complaint) Seropositive Rheumatoid ArthritisEnc ounter for Monitoring Leflunomide TherapyBody mass index (BMI) 30.0-30.9, adultHigh Risk Medication Use 4 [facility]. [address], [address], [place], [address]. tel:[phone] Specialist: Duke Beth, [address] [place] [address] [address], [place], [address]. tel:[phone] ist: Reyes Finn, [address], [place], [address]. tel:[phone] ist: Shahla Dominguez, [address], [place], [address]. tel:[phone] ist: Prateek Deras, [address], [place], [address]. tel:[phone] ng Provider: Jarrod Kumar MD, [address] [facility] [address], [place], [address]. tel:[phone] Office Visit Level IV [facility] [address], [id number], [place] tel:[phone] [facility] Follow Up of Rheumatoid Arthritis (chief complaint) Seropositive Rheumatoid ArthritisEnc ounter for Monitoring Leflunomide TherapyBody mass index (BMI) 30.0-30.9, adultHigh Risk Medication Use Dec-0 5-202 3 Joby Evva. [address], [address], [place], [place], [id number]. tel:[phone] Referring Provider: Jarrod Kumar MD, [address], [place], [address]. tel:[phone] Office Visit Level IV [facility] [address] [facility] [address], [place], [place], [id number], [place] tel:[phone] [facility] Follow Up of Rheumatoid Arthritis (chief complaint) Seropositive Rheumatoid ArthritisEnc ounter for Monitoring Leflunomide TherapyHigh Risk Medication UseBody mass index (BMI) 30.0-30.9, adult Aug-0 3-202 3 Anthony Fernando. [address], [id number]. tel:[phone] Referring Provider: Laisha Kearney, [address] [place] [address]. , [place], [address]. tel:[phone] Office Visit Level IV [facility] [address] [place] [address], [id number], tel:[phone] [facility] Follow Up of Rheumatoid Arthritis (chief complaint) Seropositive Rheumatoid ArthritisEnc ounter for Monitoring Leflunomide TherapyHigh Risk Medication UseBody mass index (BMI) 28.0-28.9, adult 2 Joby Estrella. [address] [place] [address], [id number]. tel:[phone] Referring Provider: Laisha Kearney, [address] [place] [address]. , [place], [address]. tel:[phone] Office Visit Level IV [facility] [address] [place] [address], [id number], tel:[phone] [facility] Follow Up of Rheumatoid Arthritis (chief complaint) Seropositive Rheumatoid ArthritisEnc ounter for Monitoring Leflunomide TherapyBody mass index (BMI) 28.0-28.9, adultHigh Risk Medication Use 2 Gibran Hernandez. [address] [place] [address], [id number], [place]. tel:[phone] Referring Provider: Laisha Kearney, [address] [place] [address]. , [place], [address]. tel:[phone] Office Visit Level IV [facility] [address] [place] [address], [id number], tel:[phone] [facility] Follow Up of Rheumatoid Arthritis (chief complaint) Seropositive Rheumatoid ArthritisEnc ounter for Monitoring Leflunomide TherapyBody mass index (BMI) 28.0-28.9, adultHigh Risk Medication Use 2 Joby Delores. [address] [facility], [address], [place], [id number]. tel:[phone] Referring Provider: Laisha Kearney, [address] [facility] [address], [place], [address]. tel:[phone] Office Visit Level IV [facility], [address], [id number], [place] tel:[phone] [facility] Follow Up of Rheumatoid Arthritis (chief complaint) Seropositive Rheumatoid ArthritisEnc ounter for Monitoring Leflunomide TherapyHigh Risk Medication UseBody mass index (BMI) 28.0-28.9, adult Oct 1 Raul Draper. [address] [facility], [facility] [address], [place], [address]. tel:[phone] Specialist: Duke Beth, [address] [place] [address] [address], [place], [address]. tel:[phone] ist: Reyes Finn, [address] [place] [address] Dr, [place], [address]. tel:[phone] ist: Shahla Dominguez, [address], [place], [address]. tel:[phone] ist: Prateek Deras, [address], [place], [address]. tel:[phone] ng Provider: Laisha Kearney, [address] [facility] [address], [place], [address]. tel:[phone] Office Visit Level [facility], [address], [id number], [place] tel:[phone] [facility] Follow Up of Rheumatoid Arthritis (chief complaint) Seropositive Rheumatoid ArthritisEnc ounter for Monitoring Leflunomide TherapyCurre nt Use of Steroid MedicationHi gh Risk Medication UseBody mass index (BMI) 27.0-27.9, adult Roger- 1 Anthony Fernando. [address] [facility], [address], [place], [place], [id number]. tel:[phone] Referring Provider: Laisha Kearney, [address] [facility] [address], [place], [address]. tel:[phone] [facility] [address], [id number], tel:[phone] [facility]. Follow Up of Rheumatoid Arthritis (chief complaint) Seropositive Rheumatoid ArthritisEnc ounter for Monitoring Leflunomide TherapyCurre nt Use of Steroid MedicationBo dy mass index (BMI) 28.0-28.9, adultHigh Risk Medication Use 1 Raul Draper. 330 [facility], [address], [place], [address]. tel:[phone] Specialist: Duke Beth, [address] [place] [address] [address], [place], [address]. tel:[phone] ist: Reyes Finn, [address] [place] [address], [place], [address]. tel:[phone] ist: Shahla Dominguez, [address], [place], [address]. tel:[phone] ist: Prateek Deras, [address], [place], [address]. tel:[phone] ng Provider: Laisha Kearney, [address] [facility] [address], [place], [address]. tel:[phone] Office Visit Level IV [facility], [address], [id number], [place] tel:[phone] [facility]. Follow Up of Rheumatoid Arthritis (chief complaint) Seropositive Rheumatoid ArthritisEnc ounter for Monitoring Leflunomide TherapyCurre nt Use of Steroid MedicationBo dy mass index (BMI) 27.0-27.9, adult Oct-0 2-202 0 Anthony Fernando. [address] [facility], [address], [place], [place], [id number]. tel:[phone] Referring Provider: Laisha Kearney, [address] [facility] [address], [place], [address]. tel:[phone] Office Visit Level IV [facility], [address] [facility] [address], [place], [place], [id number], tel:[phone] [facility]. Follow Up of Rheumatoid Arthritis (chief complaint) Seropositive Rheumatoid ArthritisEnc ounter for Monitoring Leflunomide TherapyBody mass index (BMI) 28.0-28.9, adultCurrent Use of Steroid Medication May-2 8-202 0 Raulfield Draper. [address] [facility], [address], [place], [address]. tel:[phone] Specialist: Duke Beth, [address] [place] [address] [address], [place], [address]. tel:[phone] ist: Reyes Finn, [address] [place] [address] Dr, [place], [address]. tel:[phone] ist: Shahla Dominguez, [address], [place], [address]. tel:[phone] ist: Prateek Deras, [address], [place], [address]. tel:[phone] ng Provider: Laisha Kearney, [address] [facility] [address], [place], [address]. tel:[phone] [facility] Level [facility] [address], [id number], [place] tel:[phone] [facility] Follow Up of Rheumatoid Arthritis (chief complaint) Body mass index (BMI) 28.0-28.9, adultCurrent Use of Steroid MedicationEn counter for Monitoring Leflunomide TherapySerop ositive Rheumatoid Arthritis 0 [facility]. [address], [place], [address]. tel:[phone] Specialist: Duke Beth, [address] [place] [address] [address], [place], [address]. tel:[phone] ist: Reyes Finn, [address] [facility] , [place], [address]. tel:[phone] ist: Shahla Dominguez, [address] [facility] [address], [place], [address]. tel:[phone] ist: Prateek Deras, [address] [facility] [address], [place], [address]. tel:[phone] ng Provider: Laisha Kearney, [address] [facility] [address], [place], [address]. tel:[phone] [facility] [address] [address], [place], [place], [id number], [place] tel:[phone] [facility] Rheumatoid arthritisDelisa ounter for Monitoring Leflunomide Therapy 0 [facility]. [address], [address], [place], [address]. tel:[phone] New Office Visit Level IV [facility] [address] [address], [place], [place], [id number], [place] tel:[phone] [facility] Abnormal Lab Study (chief complaint)F atigue (chief complaint)J oint Pain (chief complaint) Body mass index (BMI) 28.0-28.9, adultArthral giaFatiguePo sitive JANICE 0 [facility]. [address] [facility], [address], [place], [address]. tel:[phone] Specialist: Duke Beth, [address] [place] [address] [address], [place], [address]. tel:[phone] ist: Reyes Finn, [address] [facility] [address], [place], [address]. tel:[phone] ist: Shahla Dominguez, [address] [facility] [address], [place], [address]. tel:[phone] ist: Prateek Deras, [address] [facility] [address], [place], [address]. tel:[phone] ng Provider: Laisha Kearney, [address] [place] [address] [address], [place], [address]. tel:[phone] [facility], [address] [facility] [address], [place], [id number], tel:[phone] [facility] No Information 0 [facility]. 330 [facility], [facility] 100[place], [address]. tel:[phone] Referring Provider: Laisha Kearney, [facility] [address], [place], [address]. tel:[phone] Family History Family Member Type Diagnosis Age At Onset Brother Problem (finding) Stroke Mother Problem (finding) alzheimer's disease Immunizations Vaccine Date Status Comments SARS-COV-2 (COVID-19) vaccin e, mRNA, spike protein, LNP, preservative free, 100 mcg/0.5mL dose (Moderna) administered [facility] e: Other Provider SARS-COV-2 (COVID-19) vaccin e, mRNA, spike protein, LNP, preservative free, 100 mcg/0.5mL dose (Moderna) administered [facility] e: Other Provider Flu (split) (3 yrs or older) administered Source: Other Provider Payers Payer name Insurance type Covered constitution party ID Authoraurora ellis(s) Medicare [id number] MB [id number] [facility] National Account 24070 [id number] Social History Type Description Quantity Date Captured Comments Alcohol Use Details Caffeine Use Details Unknown Tobacco Use Status Current non-smoker Smoking Status Never smoker Sex Male Vital Signs Date / Time: Height Weight BMI Pulse Rate Blood Pressure Temperature Respiratory Rate Body Surface Area Head Circumference Head Circ. Percentile Wt./[place]. Percentile BMI percentile Pulse Ox Inhaled Ox 11:35 AM 71.00 in 100.244 kg (221.00 lbs) 30.8 2 kg/m eter (2) 77 /min 150/80 mm[Hg] 98.00 F Chief Complaint And Reason For Visit From encounter dated '01/04/2024 11:15'. Follow Up of Rheumatoid Arthritis (chief complaint) Reason For Referral Reason For Referral No Information Plan Of Treatment Date Type Action Status Goal Lifestyle education regardin g diet completed Goal Lifestyle education regardin g diet completed Goal Lifestyle education regardin g diet completed Goal Lifestyle education regardin g diet completed Goal Lifestyle education regardin g diet completed Goal Lifestyle education regardin g diet completed Goal Lifestyle education regardin g diet completed Goal Lifestyle education regardin g diet completed Goal Lifestyle education regardin g diet completed Goal Lifestyle education regardin g diet completed Goal Lifestyle education regardin g diet completed Goal Lifestyle education regardin g diet completed Goal Lifestyle education regardin g diet completed Appointment Eris Birch BOOKED Patient Education Hand Arthritis: Exercis es completed Patient Education Foot Arthritis: Exercis es completed Patient Education Arthritis: Care Instruc tions completed Patient Education Rheumatoid Arthritis Di et: Care Instr~ completed Patient Education Rheumatoid Arthritis: C are Instructio~ completed Future Order: Lab Order CBC With Differential/Platelet ([id number]), Sent on: Sent Future Order: Lab Order Comp. Me tabolic Panel (14) ([id number]), Sent on: Sent Future Order: Lab Order C-Reacti ve Protein, Quant ([id number]), Sent on: Sent Future Order: Lab Order Sediment ation Rate-Westergren ([id number]), Sent on: Sent Future Order: Lab Order CBC With Differential/Platelet ([id number]), Ordered on: Ordered Future Order: Lab Order Comp. Me tabolic Panel (14) ([id number]), Ordered on: Ordered Future Order: Lab Order C-Reacti ve Protein, Quant ([id number]), Ordered on: Ordered Future Order: Lab Order Sediment ation Rate-Westergren ([id number]), Ordered on: Ordered Future Order: Lab Order CBC With Differential/Platelet ([id number]), Ordered on: Ordered Future Order: Lab Order Comp. Me tabolic Panel (14) ([id number]), Ordered on: Ordered Future Order: Lab Order C-Reacti ve Protein, Quant ([id number]), Ordered on: Ordered Future Order: Lab Order Sediment ation Rate-Westergren ([id number]), Ordered on: Ordered Future Order: Lab Order CBC With Differential/Platelet ([id number]), Ordered on: Ordered Future Order: Lab Order Comp. Me tabolic Panel (14) ([id number]), Ordered on: Ordered Future Order: Lab Order C-Reacti ve Protein, Quant ([id number]), Ordered on: Ordered Future Order: Lab Order Sediment ation Rate-Westergren ([id number]), Ordered on: Ordered Future Order: Lab Order CBC With Differential/Platelet ([id number]), Ordered on: Ordered Future Order: Lab Order Comp. Ia tabolic Panel (14) ([id number]), Ordered on: Ordered Future Order: Lab Order C-Reacti ve Protein, Quant ([id number]), Ordered on: Ordered Future Order: Lab Order Sediment ation Rate-Westergren ([id number]), Ordered on: Ordered Future Order: Lab Order CBC With Differential/Platelet ([id number]), Ordered on: Ordered Future Order: Lab Order Comp. Ia tabolic Panel (14) ([id number]), Ordered on: Ordered Future Order: Lab Order C-Reacti ve Protein, Quant ([id number]), Ordered on: Ordered Future Order: Lab Order Sediment ation Rate-Westergren ([id number]), Ordered on: Ordered Future Order: Lab Order CBC With Differential/Platelet ([id number]), Ordered on: Ordered Future Order: Lab Order Comp. Ia tabolic Panel (14) ([id number]), Ordered on: Ordered Future Order: Lab Order C-Reacti ve Protein, Quant ([id number]), Ordered on: Ordered Future Order: Lab Order Sediment ation Rate-Westergren ([id number]), Ordered on: Ordered Future Order: Lab Order CBC With Differential/Platelet ([id number]), Ordered on: Ordered Future Order: Lab Order Comp. Ia tabolic Panel (14) ([id number]), Ordered on: Ordered Future Order: Lab Order C-Reacti ve Protein, Quant ([id number]), Ordered on: Ordered Future Order: Lab Order Sediment ation Rate-Westergren ([id number]), Ordered on: Ordered Future Order: Lab Order CBC With Differential/Platelet ([id number]), Ordered on: Ordered Future Order: Lab Order Comp. Ia tabolic Panel (14) ([id number]), Ordered on: Ordered Future Order: Lab Order C-Reacti ve Protein, Quant ([id number]), Ordered on: Ordered Future Order: Lab Order Sediment ation Rate-Westergren ([id number]), Ordered on: Ordered Future Order: Lab Order CBC With Differential/Platelet ([id number]), Ordered on: Ordered Future Order: Lab Order Comp. Ia tabolic Panel (14) ([id number]), Ordered on: Ordered Future Order: Lab Order C-Reacti ve Protein, Quant ([id number]), Ordered on: Ordered Future Order: Lab Order Sediment ation Rate-Westergren ([id number]), Ordered on: Ordered Future Order: Lab Order CBC With Differential/Platelet ([id number]), Ordered on: Ordered Future Order: Lab Order Comp. Ia tabolic Panel (14) ([id number]), Ordered on: Ordered Future Order: Lab Order C-Reacti ve Protein, Quant ([id number]), Ordered on: Ordered Future Order: Lab Order Sediment ation Rate-Westergren ([id number]), Ordered on: Ordered Future Order: Lab Order CBC With Differential/Platelet ([id number]), Ordered on: Ordered Future Order: Lab Order Comp. Me tabolic Panel (14) ([id number]), Ordered on: Ordered Future Order: Lab Order C-Reacti ve Protein, Quant ([id number]), Ordered on: Ordered Future Order: Lab Order Sediment ation Rate-Westergren ([id number]), Ordered on: Ordered Future Order: Lab Order Aldolase ([id number]), Ordered on: Ordered Future Order: Lab Order Anticard iolip Ab, IgA/G/M, Qn ([id number]), Ordered on: Ordered Future Order: Lab Order Anti-Katlin- 1 ([id number]), Ordered on: Ordered Future Order: Lab Order Antinucl ear Antibodies, JANICE, IFA ([id number]), Ordered on: Ordered Future Order: Lab Order C4+C3 ([id number]), O rdered on: Ordered Future Order: Lab Order CBC With Differential/Platelet ([id number]), Ordered on: Ordered Future Order: Lab Order Comp. Me tabolic Panel (14) ([id number]), Ordered on: Ordered Future Order: Lab Order Creatine Kinase,Total,Serum ([id number]), Ordered on: Ordered Future Order: Lab Order C-Reacti ve Protein, Quant ([id number]), Ordered on: Ordered Future Order: Lab Order Hepatiti s Panel (4) ([id number]), Ordered on: Ordered Future Order: Lab Order HLA B 27 Disease Association ([id number]), Ordered on: Ordered Future Order: Lab Order Sediment ation Rate-Westergren ([id number]), Ordered on: Ordered Future Order: Lab Order TSH+Free T4 ([id number]), Ordered on: Ordered Future Order: Lab Order Uric Aci d, Serum ([id number]), Ordered on: Ordered Future Order: Lab Order Urinalys is, Routine ([id number]), Ordered on: Ordered Future Order: Lab Order Lupus An ticoagulant Panel ([id number]), Ordered on: Ordered Future Order: Lab Order 25-Hyd maría Vitamin D (Theratest) (VITADEI), Ordered on: Ordered Future Order: Lab Order Anti T hyroperoxidase (Theratest) (TPO), Ordered on: Ordered Future Order: Lab Order Anti-T hyroglobulin (Theratest) (THYG), Ordered on: Ordered Future Order: Lab Order Cyclic Citrullinated Peptide-4P (Theratest) (CCP4P), Ordered on: Ordered Future Order: Lab Order EL-JANICE 9C LUZ MARINA Method, IgG (Theratest) (ANA9C), Ordered on: Ordered Future Order: Lab Order Quanti FERON - TB Gold IT Plus (Theratest) (TBGP), Ordered on: Ordered Future Order: Lab Order Rheuma toid Factor/3 IgM, IgG, IgA (Theratest) (RF3), Ordered on: Ordered History Of Present Illness Encounter Date Complaint History Of Prese nt Illness Follow Up of Rheumatoid Arthriti s Follow Up of Rheumatoid Arthriti s Follow Up of Rheumatoid Arthriti s Follow Up of Rheumatoid Arthriti s Follow Up of Rheumatoid Arthriti s Follow Up of Rheumatoid Arthriti s Follow Up of Rheumatoid Arthriti s Follow Up of Rheumatoid Arthriti s Follow Up of Rheumatoid Arthriti s Follow Up of Rheumatoid Arthriti s Follow Up of Rheumatoid Arthriti s Follow Up of Rheumatoid Arthriti s Abnormal Lab Study Fatigue Joint Pain Functional Status Date Functional Assessmen t Pain Score 6/10 Instructions Date Instruction Additional Infor lupe 1. Continue Plaqueni l.2. Continue Arava.3. He is not on steroids 4. Check labs every 8-12 weeks to monitor for medication toxicity. 5. Refill medications6. He rates his pain as 6/10 in severity. 7. Follow up in 3-4 months. 8. We are not going to use biologic agents in him because he has a history of chronic hip infection. He is on doxycycline for chronic suppression/treatment of this. He sees an infectious disease specialist. 9. Plaquenil 200 mg BID was added 01/2020. He tolerates this well, but his platelets were historically low (125) and his dose was decreased to 200 mg/day10. We gave him a handout on hand arthritis to take home and review Related to Seropositive Rheumatoid Arthritis 1. CBC and CMP every 8-12 weeks to monitor for medication toxicity. 2. Refill today Related to Encounter for Monitoring Leflunomide Therapy On this medication t he patient needs to have an eye exam at least once/year to monitor for toxicity. In 08/2022, he had an visual field test/eye exam that showed abnormality and he was supposed to have repeat testing 3 months later, which he did not have done. He would like a referral to a new lift builder whole. He reports prior eye doctor stopped accepting his insurance Related to High Risk Medication Use Lifestyle education regarding di et Related to Body mass index [BMI] 30.0-30.9, adult 1. Continue Plaqueni l.2. Continue Arava.3. He is not on steroids 4. Check labs every 8-12 weeks to monitor for medication toxicity. 5. Refill medications6. He rates his pain as 7/10 in severity. 7. Follow up in 3-4 months. 8. We are not going to use biologic agents in him because he has a history of chronic hip infection. He is on doxycycline for chronic suppression/treatment of this. He sees an infectious disease specialist. 9. Plaquenil 200mg BID was added 01/2020. 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 CBC and CMP every 8-12 weeks to monitor for medication toxicity. 2. Refill today Related to Encounter for Monitoring Leflunomide Therapy On this medication t he patient needs to have an eye exam at least once/year to monitor for toxicity. In 08/2022, he had an visual field test/eye exam that showed abnormality and he was supposed to have repeat testing 3 months later, which he did not have done. He would like a referral to a new lift builder whole. He reports prior eye doctor stopped accepting his insurance Related to High Risk Medication Use Lifestyle education regarding di et Related to Body mass index [BMI] 30.0-30.9, adult 1. Moderate Dz activ ity due to gap in therapy with missed follow up visits. 2. Restart Arava.3. He is not on steroids 4. Check labs every 8-12 weeks to monitor for medication toxicity. 5. Refill medications6. He rates his pain as 7.5/10 in severity. 7. Follow up in 3-4 months. 8. We are not going to use biologic agents in him because he has a history of chronic hip infection. He is on doxycycline for chronic suppression/treatment of this. He sees an infectious disease specialist. 9. Plaquenil 200mg BID was added 01/2020. 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 CBC and CMP every 8-12 weeks to monitor for medication toxicity. 2. Refill today Related to Encounter for Monitoring Leflunomide Therapy On this medication t he patient needs to have an eye exam at least once/year to monitor for toxicity. No eye complaints today. No recent serious infections Related to High Risk Medication Use Lifestyle education regarding di et Related to Body mass index [BMI] 30.0-30.9, adult 1. He is stable. 2. Continue Arava.3. He is not on steroids 4. Check labs every 8-12 weeks to monitor for medication toxicity. 5. Refill medications6. He rates his pain as 4/10 in severity. 7. Follow up in 3-4 months. 8. We are not going to use biologic agents in him because he has a history of chronic hip infection. He is on doxycycline for chronic suppression/treatment of this. He sees an infectious disease specialist. 9. Plaquenil 200mg BID was added 01/2020. 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 CBC and CMP every 8-12 weeks to monitor for medication toxicity. 2. Refill today Related to Encounter for Monitoring Leflunomide Therapy On this medication t he patient needs to have an eye exam at least once/year to monitor for toxicity. No eye complaints today. No recent serious infections Related to High Risk Medication Use Lifestyle education regarding di et Related to Body mass index [BMI] 28.0-28.9, adult 1. He is stable. 2. Continue Arava.3. He is not on steroids 4. Check labs every 8-12 weeks to monitor for medication toxicity. 5. Refill medications once labs are back.6. He rates his pain as 6/10 in severity. 7. Follow up in 3-4 months. 8. We are not going to use biologic agents in him because he has a history of chronic hip infection. He is on doxycycline for chronic suppression/treatment of this. He sees an infectious disease specialist. 9. Plaquenil 200mg BID was added 01/2020. 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 CBC and CMP every 8-12 weeks to monitor for medication toxicity. 2. Refill today Related to Encounter for Monitoring Leflunomide Therapy On this medication t he patient needs to have an eye exam at least once/year to monitor for toxicity. No eye complaints today. No recent serious infections Related to High Risk Medication Use Lifestyle education regarding di et Related to Body mass index [BMI] 28.0-28.9, adult 1. He is stable. 2. Continue Arava.3. He is not on steroids 4. Check labs every 8-12 weeks to monitor for medication toxicity. He has not had labs since 02/2021. Lab orders given to the patient and we discussed the importance of every 8 week labs. I will call in his refills once lab results received.5. Refill medications once labs are back.6. He rates his pain as 6.5/10 in severity. 7. Follow up in 3-4 months. 8. We are not going to use biologic agents in him because he has a history of chronic hip infection. He is on doxycycline for chronic suppression/treatment of this. He sees an infectious disease specialist. 9. Plaquenil 200mg BID was added 01/2020. 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 CBC and CMP every 8-12 weeks to monitor for medication toxicity. 2. Refill today Related to Encounter for Monitoring Leflunomide Therapy On this medication t he patient needs to have an eye exam at least once/year to monitor for toxicity. No eye complaints today. No recent serious infections Related to High Risk Medication Use Lifestyle education regarding di et Related to Body mass index [BMI] 28.0-28.9, adult 1. He is stable. 2. Continue Arava.3. He is not on steroids 4. Check labs every 8-12 weeks to monitor for medication toxicity. Lab orders given to the patient. 5. Refill medications. 6. He rates his pain as 3/10 in severity. 7. Follow up in 3-4 months. 8. We are not going to use biologic agents in him because he has a history of chronic hip infection. He is on doxycycline for chronic suppression/treatment of this. He sees an infectious disease specialist. 9. Plaquenil 200mg BID was added 01/2020. 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 CBC and CMP every 8-12 weeks to monitor for medication toxicity. 2. Refill today Related to Encounter for Monitoring Leflunomide Therapy On this medication t he patient needs to have an eye exam at least once/year to monitor for toxicity. No eye complaints today. No recent serious infections Related to High Risk Medication Use Lifestyle education regarding di et Related to Body mass index [BMI] 28.0-28.9, adult 1. He is stable. 2. Continue Arava.3. He stopped taking prednisone due to diabetes he kept elevated blood glucose. 4. Check labs every 8-12 weeks to monitor for medication toxicity. Lab orders given to the patient. 5. Refill medications. 6. He rates his pain as 3.5/10 in severity. 7. Follow up in 3-4 months. 8. I am not going to use biologic agents in him because he has a history of chronic hip infection. He is on doxycycline for chronic suppression/treatment of this. He sees an infectious disease specialist. 9. Plaquenil 200mg BID was added 01/2020. 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 CBC and CMP every 8-12 weeks to monitor for medication toxicity. 2. Check labs today. I will also request his most recent labs from the PCP office. 3. No recent serious infections. Related to Encounter for Monitoring Leflunomide Therapy He discontinued Pred nisone early 2019 due to elevated glucose levels Related to Current Use of Steroid Medication On this medication t he patient needs to have an eye exam at least once/year to monitor for toxicity. No eye complaints today. No recent serious infections Related to High Risk Medication Use Lifestyle education regarding di et Related to Body mass index [BMI] 27.0-27.9, adult 1. He is stable. 2. Continue Arava.3. He stopped taking prednisone due to diabetes he kept elevated blood glucose. 4. Check labs every 8-12 weeks to monitor for medication toxicity. Lab orders given to the patient. 5. Refill medications. 6. He rates his pain as 3.5/10 in severity. 7. Follow up in 3-4 months. 8. I am not going to use biologic agents in him because he has a history of chronic hip infection. He is on doxycycline for chronic suppression/treatment of this. He sees an infectious disease specialist. 9. Plaquenil 200mg BID was added 01/2020. 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 CBC and CMP every 8-12 weeks to monitor for medication toxicity. 2. Check labs today. I will also request his most recent labs from the PCP office. 3. No recent serious infections. Related to Encounter for Monitoring Leflunomide Therapy He discontinued Pred nisone early 2019 due to elevated glucose levels Related to Current Use of Steroid Medication On this medication t he patient needs to have an eye exam at least once/year to monitor for toxicity. No eye complaints today. No recent serious infections Related to High Risk Medication Use Lifestyle education regarding di et Related to Body mass index [BMI] 28.0-28.9, adult 1. Continues to have joint pain and swelling in his hands and knees. 2. Continue Arava.3. He stopped taking prednisone due to diabetes he kept elevated blood glucose. 4. Check labs every 8-12 weeks to monitor for medication toxicity. Lab orders given to the patient. 5. Refill medications. 6. He rates his pain as 5/10 in severity. 7. Follow up in 3-4 months. 8. I am not going to use biologic agents in him because he has a history of chronic hip infection. He is on doxycycline for chronic suppression/treatment of this. He sees an infectious disease specialist. 9. Plaquenil 200mg BID was added 01/2020. He tolerates this well, but his platelets were recently low ( 125) and his dose was decreased to 1/day. 10. His prognosis is guarded. 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 CBC and CMP every 8-12 weeks to monitor for medication toxicity. 2. Check labs today. I will also request his most recent labs from the PCP office. 3. No recent serious infections. Related to Encounter for Monitoring Leflunomide Therapy He discontinued Pred nisone early 2019 due to elevated BG. Related to Current Use of Steroid Medication Lifestyle education regarding di et Related to Body mass index [BMI] 27.0-27.9, adult 1. Handout on arthri tis given to him to take home and review. 2. Continue Arava.3. Since I saw him last he has stopped taking prednisone. 4. Check labs every 8-12 weeks to monitor for medication toxicity. Lab orders given to the patient. 5. Refill medications. 6. He rates his pain as 7/10 in severity. 7. Follow up in 3-4 months. 8. I am not going to use biologic agents in him because he has a history of chronic hip infection. He is on doxycycline for chronic suppression/treatment of this. He sees an infectious disease specialist. 9. I am going to try adding Plaquenil 200 mg twice/day. Risks and benefits reviewed. 10. His prognosis is guarded. 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 CBC and CMP every 8-12 weeks to monitor for medication toxicity. 2. Check labs today. I will also request his most recent labs from the PCP office. 3. No recent serious infections. Related to Encounter for Monitoring Leflunomide Therapy Since I saw him last he quit taking steroids. Related to Current Use of Steroid Medication Lifestyle education regarding di et Related to Body mass index (BMI) 28.0-28.9, adult 1. Handout on RA giv en to him to take home and review. 2. Continue Arava. We will give this more time. We discussed possibly adding another agent but he declined. He told me he does not like to take medication. He can let me know if he changes his mind. 3. Continue prednisone4. Check labs every 8-12 weeks. Lab orders given to the patient. 5. Refill medications. 6. He rates his pain as 8/10 in severity. 7. Follow up in 3-4 months. 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 CBC and CMP every 8-12 weeks to monitor for toxicity. 2. Check labs today. 3. No recent serious infections. Related to Encounter for Monitoring Leflunomide Therapy Ideally he will tape r off as his condition improves. We cannot taper today. He rates his pain as 8/10 in severity. Related to Current Use of Steroid Medication Lifestyle education regarding di et Related to Body mass index (BMI) 28.0-28.9, adult 1. He was found to h ave a +JANICE test. We will evaluate for inflammatory arthritis/autoimmune disease. 2. If he has an autoimmune condition we typically would start him on an immunosuppressive agent. I have concerns about doing this to him. 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 Apparently he sees an infections disease doctor and is on chronic doxycycline for this. Related to Arthralgia 1. We reviewed the [facility] labs and discussed them at length. All of the patients questions were answered. 2. Handout on + JANICE tests was given to the patient to take home. 3. An JANICE test is a non specific test. While it certainly can be positive in conditions like SLE, scleroderma, myositis, Sj???gren's, etc.. It can also be positive in patients with thyroid disease, type 1 diabetes, psoriasis, Celiacs disease, inflammatory bowel disease, etc.. There are also reports of normal/apparently healthy individuals who have been incidentally found to have a +JANICE test. You can also sometimes get a false positive JANICE test. 4. Labs today to try and determine the significance of this +JANICE test. Patient will be contacted once these test results are available. 5. Follow up appointment with us will be scheduled within 2 months. Related to Positive JANICE Labs to evaluate for autoimmune conditions. We usually contact patients with these results within 10-14 business days. 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
[2024-01-18 11:12] LABS: Basophils # 0.1 K/mm3 (0-0.2); Basophils % 1.8 % (0.1-2.0); Eosinophils # 0.2 K/mm3 (0.0-0.4); Eosinophils % 3.5 % (0.1-12.0); Hematocrit 48.4 % (42.0-52.0); Hemoglobin 15.6 g/dL (14.1-18.0); Lymphocytes # 1.6 K/mm3 (0.7-4.5); Lymphocytes % 28.3 % (10-50); Mean Corpuscular HGB Conc 32.2 g/dL (31.8-35.4); Mean Corpuscular Hemoglobin 28.9 pg (27.0-31.2); Mean Corpuscular Volume 89.5 fl (80-94); Mean Platelet Volume 7.9 fl (7.4-10.4); Monocytes # 0.5 K/mm3 (0.1-1.0); Monocytes % 8.1 % (1.7-9.3); Neutrophils # 3.2 K/mm3 (1.8-7.8); Neutrophils % 58.3 % (37.0-80.0); Platelet Count 154 K/mm3 (142-424); Red Blood Count 5.41 M/mm3 (4.60-6.20); Red Cell Distribution Width 15.1 % (11.5-17.5); White Blood Count 5.5 K/mm3 (4.8-10.8)
[2024-01-19 08:33] LABS: Sex Hormone Binding Globulin 31.8 nmol/L (19.3-76.4)
[2024-01-19 14:46] LABS: PSA, Free 0.38 ng/mL; Prostate Specific Ag 0.7 ng/mL (0.0-4.0)
[2024-01-23 16:16] LABS: Testosterone, Total, LC/MS 358 ng/dL (.)
== END 2024-01-18 23:59 | disposition home or self-care (01) ==
LOC: LAB 10:09
PROVIDERS: PCP Nurse Practitioner Family; Visit Provider Urology
DX: E55.9 Vitamin D deficiency, unspecified (principal); N40.0 Benign prostatic hyperplasia without lower urinary tract symptoms; Z79.899 Other long term (current) drug therapy
CPT/HCPCS: 36415; 84153; 84154; 84270; 84402; 84403; 85025

== ENCOUNTER 2024-04-11 14:48 | Outpatient (CLI) | payer MEDICARE, BC, SELFPAY ==
--- OUTSIDE RECORDS SUMMARY | 2024-04-11 14:51 | XMS_ITS ---
Author Name Unknown Address [address] [place] [address] [place] [id number] Phone Organization [facility] Address [address] [place], [place] [address] [address] [place] [id number] Phone Care Team Providers Care Resident Assistant Name Role Phone Braeden CAI, Prateek Wilcox Unavailable [ ] Conditions or Problems No information available. Medications No information available. Medications Administered No information available. Allergies, Adverse Reactions, Alerts No information available. 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 MEDS REVIEW Done Documenta tion of current medications (procedure) Plan of Care Type Date Detail Appointment 12:45 PM Prateek paz MD, [facility] [address], [place], [address], Pending order Continue oral an tibiotics Pending order CMP Pending order CBC with Differe ntial Pending order C- reactive prot ein Procedures Code Procedure Name Date Entry Date CPT-Cooral Continue oral antibiotics 20 20/04/10 [id number] CMP [id number] CBC with Differential 2023 [id number] C- reactive protein Vital Signs Date Name Value Unit Description BMI (Body Mass Index) 28.92 kg/m2 Bod y Mass Index (Ratio) Body Temperature 98.4 [degF] temperat ure E&M BP Diastolic 80 mm[Hg] blood pressu re, diastolic BP Systolic 158 mm[Hg] blood pressur e, systolic Heart Rate 72 /min pulse rate Height 73 [in_us] height E&M Respiratory Rate 16 /min respirat ory rate E&M Weight Measured 219.2 [lb_av] weight E& M Immunizations No information available. Advance Directives No information available.
--- OUTSIDE RECORDS SUMMARY | 2024-04-11 14:51 | XMS_ITS | Clinical Summary ---
Author Name Unknown Address [address] [place] [address] Phone Organization [facility] Address [address] [place] [address] Phone Care Team Providers Care Medical Tech Name Role Phone Braeden CAI, Prateek Wilcox Unavailable [ ] Conditions or Problems Problem Name Problem Code Onset Date Status Entry Date Provider Comment Standard Description Annotate Arthritis, right knee 650228288 (SNOMED CT) 05/11 Active 05/11 Prateek Deras MD Arthritis of knee Urticaria, chronic 82429003 (SNOMED CT) Active Prateek Deras MD Chronic urticaria Hypocalcemia 8283753 (SNOMED CT) 03/25 Inactive 03/25 Marie W Hypocalcemia HX of MSSA & P Acnes infection Z86.19 (ICD-10-CM ) 03/29 Active 04/06 Marie W Personal history of other infectious and parasitic diseases Staph Epi infection B95.7 (ICD-10-CM ) 03/29 Active 04/06 Marie W Other staphylococcus as the cause of diseases classified elsewhere Enterobacter & Eubacterium infection B96.89 (ICD-10-CM ) 03/29 Active 03/29 Marie W Other specified bacterial agents as the cause of diseases classified elsewhere MSSA Infection 144291170 (SNOMED CT) 03/23 Inactive 03/23 Marie W Infection by methicillin sensitive Staphylococcus aureus P Acnes infection B96.89 (ICD-10-CM ) 03/23 Inactive 03/23 Marie W Other specified bacterial agents as the cause of diseases classified elsewhere Enterobacter infection B96.89 (ICD-10-CM ) 03/29 Inactive 03/29 Prateek Deras MD Other specified bacterial agents as the cause of diseases classified elsewhere Cellulitis of left hip L03.116 (ICD-10-CM ) 03/25 Active 03/25 Rika Gomes Cellulitis of left lower limb Anemia in chronic diseases(docu ment disease) D63.8 (ICD-10-CM ) 03/25 Active 03/25 Rika Gomes Anemia in other chronic diseases classified elsewhere Hypocalcemia 3295931 (SNOMED CT) 03/25 Removed 03/25 Rika Gomes Hypocalcemia DM Type II E11.9 (ICD-10-CM ) 03/25 Active 03/25 Rika Gomes Type 2 diabetes mellitus without complications Benign Essential Hypertension 17297039 (SNOMED CT) 03/25 Active 03/25 Rika Gomes Benign hypertension Hip, left, subsequent encounter, 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 T84.52xD (ICD-10-CM ) 03/23 Active 03/23 Marie W Infection and inflammatory reaction due to internal left hip prosthesis, subsequent encounter P Acnes infection B96.89 (ICD-10-CM ) 03/23 Removed 03/23 Marie W Other specified bacterial agents as the cause of diseases classified elsewhere MSSA Infection 032623735 (SNOMED CT) 03/23 Removed 03/23 W Infection by methicillin sensitive Staphylococcus aureus Medications Medication Instructions Start Date Stop Date Generic Name NDC Provider DOXYCYCLINE HYCLATE 100 MG CAPS TAKE 1 CAPSULE BY MOUTH EVERY DAY doxycycline hyclate 02112492971 Maren Segura RN DOXYCYCLINE HYCLATE 100 MG CAPS 1 capsule by mouth once a day TAKE 1 CAPSULE BY MOUTH EVERY DAY doxycycline hyclate 69426103039 Prateek Deras MD DOXYCYCLINE MONOHYDRATE 100 MG CAPS 1 capsule by mouth once a day doxycycline monohydrate 13542561801 Prateek Deras MD DOXYCYCLINE HYCLATE 100 MG CAPS TAKE 1 CAPSULE BY MOUTH EVERY DAY doxycycline hyclate 18542653934 Prateek Deras MD DOXYCYCLINE HYCLATE 100 MG CAPS Take 1 capsule by mouth once a day doxycycline hyclate 15589463250 Linda Matthews RN DOXYCYCLINE HYCLATE 100 MG CAPS Take 1 capsule by mouth once a day TAKE 1 CAPSULE BY MOUTH EVERY DAY doxycycline hyclate 79643928148 Prateek Deras MD MONTELUKAST SODIUM 10 MG TABS Take 1 tablet by mouth once a day montelukast 02252475731 Linda Matthews RN CRESTOR 20 MG TABS Take 1 tablet by mouth every night rosuvastatin 17379033898 Linda Matthews RN FERROUS GLUCONATE 324 (38 Fe) MG TABS Take 1 tablet by mouth once a day ferrous gluconate 19975341960 Linda Matthews RN BYSTOLIC 5 MG TABS Take 1 tablet by mouth once a day nebivolol 56538079841 Linda Matthews RN ZOLOFT 50 MG TABS Take 1 tablet by mouth once a day sertraline 71599556671 Linda Matthews RN GLENNY ASPIRIN 325 MG TABS Take 1 tablet by mouth twice a day aspirin 13594060390 Linda Matthwes RN DOXYCYCLINE HYCLATE 100 MG CAPS Take 1 capsule by mouth once a day doxycycline hyclate 54820841267 Prateek Dreas MD MELOXICAM 15 MG TABS Take 1 tablet by mouth once a day meloxicam 15766222352 Linda Matthews RN RANITIDINE HCL 300 MG ORAL CAPSULE Take 1 tablet by mouth once a day RANITIDINE HCL 300 MG ORAL CAPSULE Linda Matthews RN PERCOCET 5-325 MG TABS Take 1 tablet by mouth every four hours as needed oxycodone-aceta minophen 01348578497 Linda Matthews RN COLACE 100 MG CAPS Take 1 tablet by mouth twice a day docusate sodium 57693099939 Linda Matthews RN TRAZODONE HCL 50 MG TABS Take 1 tablet by mouth every night trazodone 44639421445 Linda Matthews RN ADULT ASPIRIN EC LOW STRENGTH 81 MG ORAL TABLET DELAYED RELEASE Take 1 tablet by mouth twice a day ADULT ASPIRIN EC LOW STRENGTH 81 MG ORAL TABLET DELAYED RELEASE Linda Matthews RN ALAVERT 10 MG TBDP Take 1 tablet by mouth once a day loratadine 92915216600 Linda Matthews RN Novolog U-100 Insulin aspart 100 unit/mL solution insulin aspart u-100 63849865387 Linda Matthews RN ALL DAY ALLERGY 10 MG ORAL CAPSULE Take 1 tablet by mouth twice a day ALL DAY ALLERGY 10 MG ORAL CAPSULE Linda Matthews RN DOXYCYCLINE HYCLATE 100 MG CAPS TAKE 1 CAPSULE BY MOUTH EVERY DAY DOXYCYCLINE HYCLATE 81708955350 Prateek Deras MD DOXYCYCLINE HYCLATE 100 MG CAPS TAKE 1 CAPSULE BY MOUTH ONCE DAILY. DOXYCYCLINE HYCLATE 19318214607 Prateek Deras MD DOXYCYCLINE HYCLATE 100 MG CAPS take 1 capsule by mouth once daily DOXYCYCLINE HYCLATE 98140294200 Javy Gutierrez MD. DOXYCYCLINE HYCLATE 100 MG CAPS take 1 capsule by mouth once daily DOXYCYCLINE HYCLATE 18931949625 Javy Gutierrez MD. DOXYCYCLINE HYCLATE 100 MG CAPS TAKE ONE CAPSULE BY MOUTH ONCE DAILY DOXYCYCLINE HYCLATE 47708943413 Javy Gutierrez MD. CUBICIN 500 MG INTRAVENOUS SOLUTION RECONSTITUTED 500mg IV q24hr HH [facility] DAPTOMYCIN 79657836896 Javy Gutierrez MD. INVANZ (IV) SOLUTION RECONSTITUTED 1GM IV daily/ [facility] and [facility] for Wound vac changes, labs and picc care ERTAPENEM SODIUM SOLR 15016008730 Javy Gutierrez MD. DOXYCYCLINE HYCLATE 100 MG CAPS one cap po bid DOXYCYCLINE HYCLATE 20161364523 Javy Gutierrez MD. INVANZ (IV) SOLUTION RECONSTITUTED 1GM IV daily/ [facility] for Wound vac changes, labs and picc care ERTAPENEM SODIUM SOLR 71175392036 Linda Matthews RN CUBICIN 500 MG INTRAVENOUS SOLUTION RECONSTITUTED 500mg IV q24hr HH [facility] DAPTOMYCIN 89651875514 Linda Matthews RN INVANZ (IV) SOLUTION RECONSTITUTED 1GM IV daily/ [facility] and [facility] for PICC care and dose w/MD visit [facility] for Wound vac changes ERTAPENEM SODIUM SOLR 24836944894 Linda Matthews RN CEFTRIAXONE SODIUM 2 GM SOLR 2gm IV q24hr [facility] / [facility] for PICC care & dose w/ MD appt CEFTRIAXONE SODIUM 41575968929 Linda Matthews RN CEFTRIAXONE SODIUM 2 GM SOLR 2gm IV q24hr [facility] / [facility] for PICC care & dose w/ MD appt CEFTRIAXONE SODIUM 28582046004 Adri Morales RN CUBICIN 500 MG INTRAVENOUS SOLUTION RECONSTITUTED 500mg IV q24hr [facility] / [facility] for PICC dressing & dose w/ MD appt DAPTOMYCIN 35033668637 Adri Morales RN CEFTRIAXONE SODIUM 2 GM SOLR 2 gms IV Q 2 4hrs/OPAT CEFTRIAXONE SODIUM 57990962258 Destiny Contreras RN CUBICIN RF 500 MG SOLR 500mg IV Q 2 4hrs/OAPT DAPTOMYCIN 94941059609 Destiny Contreras RN CUBICIN RF 500 MG SOLR 500mg IV Q 2 4hrs/OAPT DAPTOMYCIN 54722163206 Destiny Contreras RN CEFTRIAXONE SODIUM 2 GM SOLR 2 gms IV Q 2 4hrs/OPAT CEFTRIAXONE SODIUM 87161275359 Destiny Contreras RN ZOLOFT 50 MG TABS Take 1 tablet by mouth daily SERTRALINE HCL 80173610319 Albina Crista TRAZODONE HCL 50 MG TABS Take 1 tablet by mouth daily at bedtime TRAZODONE HCL 17798185067 Albina Crista CRESTOR 20 MG TABS Take 1 tablet by mouth daily at bedtime ROSUVASTATIN CALCIUM 39404955319 Albina Crista RANITIDINE HCL 300 MG ORAL CAPSULE Take 1 tablet by mouth daily RANITIDINE HCL 68473507729 Albina Crista PERCOCET 5-325 MG TABS Take 1 tablet by mouth q4h prn OXYCODONE-ACETA MINOPHEN 83458297571 Albina Crista NOVOLOG 100 UNIT/ML SUBCUTANEOUS SOLUTION INSULIN ASPART 03485714011 Albina Crista MONTELUKAST SODIUM 10 MG TABS Take 1 tablet by mouth daily MONTELUKAST SODIUM 27462336385 Albina Crista MELOXICAM 15 MG TABS Take 1 tablet by mouth daily MELOXICAM 31389024554 Albina Crista ALAVERT 10 MG TBDP Take 1 tablet by mouth daily LORATADINE 61542383835 Albina Crista FERROUS GLUCONATE 324 (38 Fe) MG TABS Take 1 tablet by mouth daily FERROUS GLUCONATE 55365626363 Albina Crista COLACE 100 MG CAPS Take one (1) tablet by mouth twice a day DOCUSATE SODIUM 71146641704 Albina Crista ALL DAY ALLERGY 10 MG ORAL CAPSULE Take one (1) tablet by mouth twice a day CETIRIZINE HCL 19311616554 Albina Crista BYSTOLIC 5 MG TABS Take 1 tablet by mouth daily NEBIVOLOL HCL 85250175799 Albina Crista ASPIRIN 325 MG TABS Take one (1) tablet by mouth twice a day ASPIRIN 99050049304 Albina Tobin ADULT ASPIRIN EC LOW STRENGTH 81 MG ORAL TABLET DELAYED RELEASE Take one (1) tablet by mouth twice a day ASPIRIN 55060430030 Albina Tobin Medications Administered No information available. Allergies, Adverse Reactions, Alerts No information available. Results Date Name Value Unit Range Flag Description External Other: Patient katiana yun update - EmailStatus, [facility] [employer] ... PATPORTALPIN Linked This hiral l be used to establish a PIN number for patients to register in the Patient Portal. External Other: Patient katiana yun update - Email Push, [facility] [employer] ... PAT E-MAIL [email or web address] patient's e-mail address Chart Maintenance: CBC, CMP, ESR, CRP , CK 05/03 CPK 256 U/L Creatine ajay se [Enzymatic activity/volume] in Serum or Plasma BASOPHIL % 0 % Basophils/ 100 leukocytes in Blood by Manual count LYMPHS % 35 % Lymphocytes/ 100 leukocytes in Blood by Automated count Lab Report: CBC WITH AUTO DI FFERENTIAL MONOCYTE BF 10.0 % 0.0-12.0 monocyte s as percent of body fluid leukocytes PMN % 56.8 % 41.0-71.0 Neutrophils /100 leukocytes in Blood by Automated count Lab Report: COMPREHENSIVE ME TABOLIC PANEL GFRC 91 mL/min/1. 73m2 >60 Glomerular Filtration Rate Calculation Office Visit: Office Visit: room 4 ORALTOBACUSE Former Tobacco smoking status SMOK STATUS Never smoker Tobacco smoking status MEDS REVIEW Done Documenta tion of current medications (procedure) Lab Report: CBC WITH AUTO DI FFERENTIAL ZZ-GE-[id number] 0.0 /100 WBC 0.0-0.2 GE use only - fo r [employer] import when terms are not otherwise specified IMMATUREGRAN 0.02 10*3/MM3 0.00-0.05 Immature granulocytes [#/volume] in Blood BASO# 0.04 10*3/mm3 0.00-0.20 Basophils [#/vol ume] in Blood EOS ABSLT 0.34 10*3/uL 0.00-0.40 Eosinophi ls [#/volume] in Blood MONOSCT AUTO 0.74 10*3/uL 0.10-0.90 Monocy renetta [#/volume] in Blood by Automated count LYMPHCT AUTO 1.49 10*3/mm3 0.70-3.10 Lymph ocytes [#/volume] in Blood by Automated count ABS NEUTROPH 4.25 10*3/uL 1.70-7.00 Neutro phils [#/volume] in Blood IMM GRANU % 0.3 % 0.0-0.5 Immature granulocytes/100 leukocytes in Blood % EOS AUTO 4.9 % 0.3-6.2 Eosinophil s/100 leukocytes in Blood by Automated count MONOCYTE % 10.8 % 5.0-12.0 Monocytes /100 leukocytes in Blood by Automated count LYMPHOCY BF 21.7 % 19.6-45.3 lymphoc ytes as percent of body fluid leukocytes NEUTROP BF 61.7 % 42.7-76.0 Neutroph ils/100 leukocytes in Body fluid PLATELETS 161 10*3/mm3 140-450 Platelets [#/volume] in Blood by Automated count RDW_ 13.5 12.3-15.4 RDW, no uni ts MCHC 32.9 G/DL 31.5-35.7 MCHC [Mass/ volume] by Automated count MCH 28.5 pg 26.6-33.0 MCH [Entiti c mass] by Automated count MCV 86.8 fL 79.0-97.0 MCV [Entiti c volume] by Automated count HCT 48.7 % 37.5-51.0 Hematocrit [Volume Fraction] of Blood by Automated count HGB 16.0 g/dL 13.0-17.7 Hemoglobin [Mass/volume] in Blood RBC 5.61 10*6/mm3 4.14-5.80 Erythrocyt es [#/volume] in Blood by Automated count WBC 6.88 10*3/mm3 3.40-10.8 0 Leukocytes [#/volume] in Blood by Automated count Lab Report: SEDIMENTATION RA TE ESR 26 mm/h 0-20 H Erythrocyte sedimentation rate by Westergren method Lab Report: C-REACTIVE PROTE IN CRP <0.30 mg/dL 0.00-0.50 C reactive protein [Mass/volume] in Serum or Plasma Lab Report: COMPREHENSIVE ME TABOLIC PANEL ANIONGAP 9.0 mmol/L 5.0-15.0 anion gap, serum BUN/CREAT 13.8 7.0-25.0 Urea nitrogen/Creatinine [Mass Ratio] in Serum or Plasma BILI TOTAL 1.6 mg/dL 0.0-1.2 H Bilirubin. total [Mass/volume] in Serum or Plasma ALK PHOS 81 U/L 39-117 Alkaline tatum sphatase [Enzymatic activity/volume] in Blood SGOT (AST) 42 U/L 1-40 H Aspartate aminotransferase [Enzymatic activity/volume] in Serum or Plasma SGPT (ALT) 46 U/L 1-41 H Alanine aminotransferase [Enzymatic activity/volume] in Serum or Plasma ALBUMIN 4.3 g/dL 3.5-5.2 Albumin [Mass/volume] in Serum or Plasma PROTEIN, TOT 7.2 g/dL 6.0-8.5 Protein [Mass/volume] in Serum or Plasma CALCIUM 9.3 mg/dL 8.6-10.5 Calcium [Moles/volume] in Serum or Plasma CO2 28.0 mmol/L 22.0-29.0 Carbon diox maribel, total [Moles/volume] in Venous blood CHLORIDE 100 mmol/L 98-107 Chloride [Moles/volume] in Serum or Plasma POTASSIUM 4.3 mmol/L 3.5-5.2 Potassium [Moles/volume] in Serum or Plasma SODIUM 137 mmol/L 136-145 Sodium [Moles/volume] in Serum or Plasma CREATININE 0.87 mg/dL 0.76-1.27 Creatini ne [Mass/volume] in Serum or Plasma BUN 12 mg/dL 6-20 Urea nitrogen [Mass/volume] in Serum or Plasma GLUCOSE SER 100 mg/dL 65-99 H Glucose [Mass/volume] in Serum or Plasma Plan of Care Type Date Detail Appointment 12:45 PM Prateek paz MD, [address], [place], [address], Pending order Continue oral an tibiotics Pending order CMP Pending order CBC with Differe ntial Pending order C- reactive prot ein Pending order STAT Labs Pending order STAT Labs Pending order CMP Pending order CBC with Differe ntial Pending order C- reactive prot ein Pending order Continue oral an tibiotics Pending order STAT Labs Pending order STAT Labs Pending order Continue oral an tibiotics Pending order CMP Pending order CBC with Differe ntial Pending order C- reactive prot ein Pending order STAT Labs Pending order STAT Labs Pending order STAT Labs Pending order STAT Labs Pending order Continue oral an tibiotics Pending order CMP Pending order CBC with Differe ntial Pending order C- reactive prot ein Pending order STAT Labs Pending order Continue oral an tibiotics Pending order CMP Pending order CBC with Differe ntial Pending order C- reactive prot ein Pending order CMP Pending order CBC with Differe ntial Pending order C- reactive prot ein Pending order Continue oral an tibiotics Pending order CMP Pending order CBC with Differe ntial Pending order C- reactive prot ein Pending order Sedimentation Ra te (ESR) Pending order Continue oral an tibiotics Pending order Change oral anti biotics Pending order CMP Pending order CBC with Differe ntial Pending order C- reactive prot ein Pending order Sedimentation Ra te (ESR) Pending order Discontinue IV a ntibiotics Pending order PICC Removal Pending order New Oral Antibio tic Pending order Continue IV anti biotics Pending order Continue IV anti biotics Pending order Continue IV anti biotics Pending order Continue IV anti biotics Pending order Change IV antibi otics Pending order Stat Weekly Labs Pending order Stat Weekly Labs Pending order Daptomycin Pending order Ceftriaxone Patient education Medications Patient education Daptomycin%20( Injection)%20(Injectable) Patient education Ceftriaxone%20 (Injection)%20(Injectable) Patient education Daptomycin%20( Injection)%20(Injectable) Patient education Ceftriaxone%20 (Injection)%20(Injectable) Procedures Code Procedure Name Date Entry Date CPT-Cooral Continue oral antibiotics 20 20/04/10 CPT-86740 CMP [id number] CBC with Differential 2023 CPT-35297 C- reactive protein CPT-20432 CMP [id number] CBC with Differential 2022 CPT-66257 C- reactive protein CPT-Cooral Continue oral antibiotics 17/02/03 CPT-[facility]oor[facility] Continue oral antibiotics 17/01/25 CPT-43081 CMP [id number] CBC with Differential 2021 CPT-49465 C- reactive protein CPT-sl STAT Labs CPT-sl STAT Labs CPT-Cooral Continue oral antibiotics 18/11/21 CPT-59811 CMP [id number] CBC with Differential 2020 CPT-72398 C- reactive protein CPT-sl STAT Labs CPT-Cooral Continue oral antibiotics 20 17/11/09 CPT-49177 CMP [id number] CBC with Differential 2019 CPT-48031 C- reactive protein CPT-65375 CMP [id number] CBC with Differential 2018 CPT-18121 C- reactive protein CPT-Cooral Continue oral antibiotics 20 16/05/14 CPT-68188 CMP [id number] CBC with Differential 2018 CPT-82856 C- reactive protein CPT-91666 Sedimentation Rate (ESR) 201 05/30/04 CPT-Cooral Continue oral antibiotics 20 16/11/03 CPT-coral Change oral antibiotics 2017 CPT-19451 CMP [id number] CBC with Differential 2017 CPT-28864 C- reactive protein CPT-50044 Sedimentation Rate (ESR) 201 05/07/31 CPT-ca Continue IV antibiotics 2017 CPT-ca Continue IV antibiotics 2017 CPT-ca Continue IV antibiotics 2017 CPT-juan Change IV antibiotics 03/29 CPT-J0878 Daptomycin CPT-J0696 Ceftriaxone Vital Signs Date Name Value Unit Description [...] Measured 219.2 [lb_av] weight E& M Immunizations Vaccine Administration Date Standard Description CVX Co de Dose Unspecified Formulation Unspecified Formulation 88 Unknown Advance Directives Directive Description Start Date NO ADVANCED DIRECTIVES
[2024-04-11 21:58] LABS: Alanine Aminotransferase 38 U/L (12-78); Albumin Level 4.1 g/dl (3.5-5.0); Alkaline Phosphatase 85 U/L (38-126); Anion Gap 11.2 mEq/L (5-15); Aspartate Amino Transferase 37 U/L (17-59); Bilirubin,Indirect 1.7 mg/dL (0.0-0.9); Bilirubin,Total 1.7 mg/dl (0.2-1.3); Bilirubin,Unconjugated 1.7 mg/dL (0.0-1.1); Blood Urea Nitrogen 16 mg/dl (9-20); Calcium 9.4 mg/dl (8.4-10.2); Carbon Dioxide 27 mmol/L (22.0-30.0); Chloride 102 mmol/L (98-107); Chol/HDL Ratio 3.8 (1-3.5); Cholesterol 156 mg/dl (140-200); Estimated Glomerular Filt Rate 116 ml/min (>60); GFR (African American) 140 ML/MIN (>60); Glucose 244 mg/dl (74-100); HDL Cholesterol 41 mg/dl (40-60); Potassium 4.2 mmoL/L (3.5-5.1); Sodium 136 mmol/L (136-145); Total Protein,Serum 6.7 g/dl (6.3-8.2); Triglycerides 247 mg/dl (30-150); VLDL Cholesterol 49 mg/dL (0-40)
[2024-04-11 22:08] LABS: Direct LDL Cholesterol 77.14 mg/dL (100-129)
== END 2024-04-11 23:59 | disposition home or self-care (01) ==
LOC: LAB 14:49
PROVIDERS: PCP Nurse Practitioner Family; Visit Provider Nurse Practitioner
DX: I11.9 Hypertensive heart disease without heart failure (principal); R94.31 Abnormal electrocardiogram [ECG] [EKG]; E11.9 Type 2 diabetes mellitus without complications; Z79.4 Long term (current) use of insulin; K21.9 Gastro-esophageal reflux disease without esophagitis; E78.5 Hyperlipidemia, unspecified
CPT/HCPCS: 36415; 80048; 80061; 80076

== ENCOUNTER 2025-01-27 13:59 | Outpatient (CLI) | payer MEDICARE, SELFPAY ==
[2025-01-27 14:33] LABS: Erythrocyte Sedimentation Rate 25 mm/hr (0-20)
[2025-01-27 14:59] LABS: Uric Acid 3.7 mg/dl (3.5-8.5)
[2025-01-30 13:12] LABS: Anti-Centromere B Antibodies <0.2 AI (0.0-0.9); Anti-DNA (DS) Ab Qn <1 IU/mL (0-9); Anti-Jo-1 <0.2 AI (0.0-0.9); Antichromatin Antibodies 0.2 AI (0.0-0.9); Antinuclear Antibodies (ANA) Positive (Negative); Antiscleroderma-70 Antibodies <0.2 AI (0.0-0.9); RNP Antibodies 1.2 AI (0.0-0.9); Sjogren's Anti-SS-A <0.2 AI (0.0-0.9); Sjogren's Anti-SS-B <0.2 AI (0.0-0.9)
[2025-01-30 15:11] LABS: Antinuclear Antibodies, IFA Negative (.)
== END 2025-01-27 23:59 | disposition home or self-care (01) ==
LOC: LAB.DROPOF 14:00
PROVIDERS: PCP Nurse Practitioner Family; Visit Provider Nurse Practitioner Family
DX: M06.9 Rheumatoid arthritis, unspecified (principal); M25.50 Pain in unspecified joint
CPT/HCPCS: 84550; 85651; 86038; 86431

== ENCOUNTER 2025-06-01 07:22 | Day surgery (SDC) | payer MEDICARE, BC, SELFPAY ==
[2025-05-26 10:28] VITALS: BMI 27.8
--- NOTE | 2025-05-31 06:56 | EXP.HP ---
History of Present Illness *Admission Date: 06/01/25 *Reason for visit:: Personal history of adenomatous colon polyps *History of present illness: Mr. Birch is a 59-year-old gentleman who is here for screening/surveillance colonoscopy secondary to a personal history of adenomatous colon polyps. The patient did have a colonoscopy with Cory Junior MD in August 2021 and had 2 polyps (tubular adenomas x 2) removed. The patient reports no abdominal pain, weight loss, change in his bowel habits or rectal bleeding. He does have some long-term gassiness/flatulence without bloating. He does have some bowel irregularity with alternating constipation and diarrhea. He reports no family history of colon cancer. The examination is deemed medically necessary for screening colonoscopy. The patient has been seen, interviewed and examined prior to the procedure by both myself and the anesthesia provider. [facility] Disclaimer: The information contained in this section may have been updated after the patient was seen, as this information can be updated by other users. Medical History Mood disorder HLD (hyperlipidemia) SOB (shortness of breath) Diabetes HTN (hypertension) Surgical History History of hip replacement total of 5 hip replacements Family History Other No significant family history Social History Smoking Status: Never smoker second hand exposure: Yes alcohol intake: current alcohol intake frequency: holidays/special occasions only counseling given: No substance use type: denies use counseling given: No current occupational status: disabled Travel in the last 8 weeks?: None adopted: No caregiver/support person: No foster care: No household members: spouse and family housing: house lives independently: Yes marital status: number of children: 3 number of grandchildren: 2 education level: high school current occupational exposures/hazards: No Hx Recent Travel: No caffeine: Yes physical activity: none king/yarsani: Gnosticism special king needs: No working smoke detector in home: Yes fire extinguisher in home: Yes carbon monox detector in home: Yes firearms in home: Yes firearms unloaded and locked: Yes do you feel safe at home: Yes victim of physical abuse: No victim of emotional abuse: No victim of sexual abuse: No would you like helpful sources: No Have you lived/traveled outside US in past 30 days?: No Contact w/someone who lives/traveled outside US past 30 days?: No Exposure to someone with infectious disease in past 14 days?: No Do you have a fever (greater than 100.4 F or 38 C)?: No Have you tested positive for COVID-19?: No Exposed to someone with COVID-19 in past 14 days?: No Do you have a sore throat?: No Do you have a cough?: No Do you have any weakness?: No Do you have any diarrhea?: No Are you experiencing any unusual bleeding?: No Do you have any muscle aches/pain?: No Do you have any abdominal pain?: No Are you experiencing loss of taste or smell?: No Other Medical History Have you received the Flu Vaccine for this season: No Have you received the Pneumonia Vaccine: No Review of Systems Review of Systems Review of systems (narrative): Negative *Cardiovascular Comments: Negative *Gastrointestinal Comments: Negative *Genitourinary Comments: Negative *Musculoskeletal Comments: Negative *Neurologic Comments: Negative Meds Home Medications and Allergies Home Medications ?Medication ?Instructions ?Recorded ?Confirmed ?Type hydroxychloroquine 200 mg tablet 200 mg PO DAILY Arthritis 05/21/20 06/01/25 History leflunomide 20 mg tablet 20 mg PO DAILY Arthritis 05/21/20 06/01/25 History aspirin 81 mg tablet,delayed 81 mg PO DAILY Blood thinner 09/11/21 06/01/25 History release L.acidoph,paracasei,B.animalis 10 1 each PO DAILY . 10/08/21 06/01/25 History billion cell capsule doxycycline hyclate 150 mg 100 mg PO DAILY . 10/08/21 06/01/25 History tablet,delayed release jelfiljv-wo-eoaaa 300 mcg-K 60 1 each PO DAILY Supplement 10/08/21 06/01/25 History mcg-lycop 600 mcg-lutein 300 mcg tablet insulin aspart U-100 100 unit/mL 1 sliding scale dose SQ 01/27/23 06/01/25 History (3 mL) subcutaneous pen (Novolog USEASDIRECTD FlexPen U-100 Insulin aspart) blood-glucose sensor (Dexcom G6 #1 ea 08/28/23 06/01/25 History Sensor device) blood-glucose transmitter (Dexcom #1 ea 08/28/23 06/01/25 History G6 Transmitter device) insulin pump cart,automated,BT #5 ea 08/28/23 06/01/25 History (Omnipod 5 G6 Pods (Gen 5) subcutaneous cartridge) nebivolol 10 mg tablet 10 mg PO DAILY bp #90 tabs 08/01/24 06/01/25 Rx rosuvastatin 20 mg tablet See Rx Instructions .Route 08/08/24 06/01/25 Rx .COMPLEX #90 tabs amlodipine 10 mg tablet (Norvasc) 10 mg PO DAILY #30 tabs 01/09/25 06/01/25 Rx desvenlafaxine succinate 50 mg 50 mg PO DAILY #30 tabs 03/08/25 06/01/25 Rx tablet,extended release 24 hr (Pristiq) sodium,potassium,mag sulfates 17.5 See Rx Instructions PO .COMPLEX 03/13/25 06/01/25 Rx gram-3.13 gram-1.6 gram oral soln #354 mL (Suprep Bowel Prep Kit) cariprazine 1.5 mg capsule 1.5 mg PO DAILY #30 caps 03/14/25 06/01/25 Rx (Vraylar) famotidine 40 mg tablet See Rx Instructions .Route 04/04/25 06/01/25 Rx .COMPLEX #90 tabs tramadol 50 mg tablet 50 mg PO Q8H Pain #90 tabs 04/07/25 06/01/25 Rx blood pressure monitor #1 ea 04/24/25 06/01/25 Rx meloxicam 15 mg tablet See Rx Instructions .Route 05/11/25 06/01/25 Rx .COMPLEX #30 tabs losartan 100 mg tablet See Rx Instructions .Route 05/23/25 06/01/25 Rx .COMPLEX #90 tabs New Prescriptions to Start Prescriptions: Allergies Allergy/AdvReac Type Severity Reaction Status Date / Time No Known Allergies Allergy Verified 06/01/25 07:39 Exam *Routine HEENT Exam Head: Present normocephalic Eye: Present EOMI and PERRL ENT: Present mucous membranes moist *Routine Neck Exam Neck: Present supple *Routine Respiratory Exam Respiratory: Present CTA bilaterally *Routine Cardiovascular Exam Cardiovascular: Present RRR *Routine Abdominal Exam Abdominal: Present soft and normoactive bowel sounds; Absent tenderness *Routine Rectal Exam Rectal:: deferred *Routine Genitalia Exam Genitalia:: deferred *Routine Extremities Exam Extremities: Absent cyanosis, clubbing or edema *Routine Skin Exam Skin: Present warm; Absent rash *Routine Neurological Exam Neurological: Present alert and oriented X3 Assessment and Plan *Assessment and plan (1) Screening for colon cancer: Status: Acute Category: Medical Code(s): Z12.11 - Encounter for screening for malignant neoplasm of colon (2) Personal history of adenomatous and serrated colon polyps: Status: Acute Category: Medical Code(s): Z86.0101 - Personal history of adenomatous and serrated colon polyps Plan A/P: 1. Screening for colon cancer and personal history of adenomatous colon polyps is the preprocedural diagnosis. The patient will be anesthetized/sedated using MAC sedation. The patient has been seen and examined. Cardiac and lung assessment prior to the examination is stable. Proceed with planned screening colonoscopy.
[2025-06-01 07:40] VITALS: BP 128/74; PULSE 68; RESP 16; TEMP 36.3; O2SAT 95
[2025-06-01] MEDS: LACTATED RINGERS 1000ML 1,000 ML 50 ML IV (08:01)
[2025-06-01 08:02] LABS: POC Glucose,Bedside 147 gm/dL (70-110)
--- NOTE | 2025-06-01 08:49 | EXP.ANES.CKL ---
[facility] Disclaimer: The information contained in this section may have been updated after the patient was seen, as this information can be updated by other users. Medical History Mood disorder HLD (hyperlipidemia) SOB (shortness of breath) Diabetes HTN (hypertension) Surgical History History of hip replacement total of 5 hip replacements Family History Other No significant family history Social History Smoking Status: Never smoker second hand exposure: Yes alcohol intake: current alcohol intake frequency: holidays/special occasions only counseling given: No substance use type: denies use counseling given: No current occupational status: disabled Travel in the last 8 weeks?: None adopted: No caregiver/support person: No foster care: No household members: spouse and family housing: house lives independently: Yes marital status: number of children: 3 number of grandchildren: 2 education level: high school current occupational exposures/hazards: No Hx Recent Travel: No caffeine: Yes physical activity: none king/mu-ism: Worship special king needs: No working smoke detector in home: Yes fire extinguisher in home: Yes carbon monox detector in home: Yes firearms in home: Yes firearms unloaded and locked: Yes do you feel safe at home: Yes victim of physical abuse: No victim of emotional abuse: No victim of sexual abuse: No would you like helpful sources: No Have you lived/traveled outside US in past 30 days?: No Contact w/someone who lives/traveled outside US past 30 days?: No Exposure to someone with infectious disease in past 14 days?: No Do you have a fever (greater than 100.4 F or 38 C)?: No Have you tested positive for COVID-19?: No Exposed to someone with COVID-19 in past 14 days?: No Do you have a sore throat?: No Do you have a cough?: No Do you have any weakness?: No Do you have any diarrhea?: No Are you experiencing any unusual bleeding?: No Do you have any muscle aches/pain?: No Do you have any abdominal pain?: No Are you experiencing loss of taste or smell?: No [facility] Anesthesia Checklist Patient Identification Patient Identification: Arm Band Structural Data Admitted From: Home Planned Operative Procedure/s: Colonoscopy Consent for Planned Operative Procedure(s) Verified: Yes Verified Documents: Surgical Consent and History and Physical NPO Status Verified Time NPO: 00:00 Additional verifications Anesthesia Reactions: No Hx Blood Transfusions: No Blood Transfusion Reaction: No Airway Assessment Mallampati Score:: Class II C-Spine Mobility Assessed: Yes TMJ Mobility Assessed: Yes Dentition: Good Dentition Neurological Assessment Level of Consciousness: Awake, Alert and Appropriate Anesthesia Plan Anesthesia Risk discussed: Yes Anesthesia Plan: Verified ASA Class: II Anesthesia Type: MAC
--- NOTE | 2025-06-01 08:54 | P.PCN_ITS ---
[facility] Procedure Note Date: 06/01/25 Time: 09:03 Procedure Note:: Colonoscopy Procedure Report: Colonoscopy Endoscopist: Jonatan Montana II, MD Referring physician: TATI Weber Date of Procedure: June 01, 2025 Equipment: Olympus [id number] adult colonoscope Sedation: MAC sedation Indication: Mr. Birch is a 59-year-old gentleman who is here for screening/surveillance colonoscopy secondary to a personal history of adenomatous colon polyps. The patient did have a colonoscopy with Cory Junior MD in August 2021 and had 2 polyps (tubular adenomas x 2) removed. The patient reports no abdominal pain, weight loss, change in his bowel habits or rectal bleeding. He does have some long-term gassiness/flatulence without bloating. He does have some bowel irregularity with alternating constipation and diarrhea. He reports no family history of colon cancer. Procedure: Prior to the procedure, a history and physical exam was performed, and patient's medications and allergies were reviewed. The risks, benefits and alternatives of the sedation and procedure were discussed with the patient. All questions were answered and informed consent was obtained. The patient was brought to the procedure room. Patient identification and proposed procedure were verified by the physician and the nurse. The patient was placed in a left lateral decubitus position and the scope was passed under direct vision. Throughout the procedure, the patient's blood pressure, pulse, and oxygen saturations were monitored continuously. The colonoscopy was accomplished without difficulty. The patient tolerated the procedure well. Findings: On digital rectal examination there was normal rectal tone. There were no external hemorrhoids. The prostate was 2+, smooth, soft, symmetric without nodules. The colonoscope was introduced through the anal canal to the rectum and advanced to the cecum. The ileocecal valve and appendiceal orifice were identified. The scope was advanced a short distance into the ileum which appeared grossly normal. The scope was then withdrawn into the colon. The cecum, ascending and transverse colon and mucosa were grossly normal. There were scattered diverticuli throughout the descending and sigmoid colon (LEFT colon). The rectum itself was normal. Upon retroflexion within the rectum there were grade 1-2 internal hemorrhoids. The preparation was excellent throughout with [place] Preparation Score of 9. The cecal time was 10 minutes. Impression: 1. Left-sided diverticulosis 2. Grade 1-2 internal hemorrhoids Plan: The patient will not require screening/surveillance colonoscopy again for 10 years by ACS guidelines. I would encourage psyllium bulking fiber supplementation on a maintenance basis.
[2025-06-01 09:06] VITALS: BP 100/47; PULSE 69; RESP 18; TEMP 36.4; O2SAT 93
[2025-06-01 09:16] VITALS: BP 104/51; PULSE 68; RESP 18; TEMP 36.4; O2SAT 94
[2025-06-01 09:26] VITALS: BP 127/64; PULSE 71; RESP 18; TEMP 36.4; O2SAT 97
[2025-06-01 09:36] VITALS: BP 159/80; PULSE 72; RESP 18; TEMP 36.4; O2SAT 97
== END 2025-06-01 09:47 | disposition home or self-care (01) ==
PROVIDERS: PCP Nurse Practitioner Family; Visit Provider Internal Medicine Gastroenterology
PROC: 0DJD8ZZ Inspection of Lower Intestinal Tract, Via Natural or Artificial Opening Endoscopic (ICD-10-PCS; CPT 45378; principal; 2025-06-01 09:00)
DX: Z12.11 Encounter for screening for malignant neoplasm of colon (principal); Z86.0101 Personal history of adenomatous and serrated colon polyps; R14.0 Abdominal distension (gaseous); R19.4 Change in bowel habit; K57.30 Diverticulosis of large intestine without perforation or abscess without bleeding; K64.1 Second degree hemorrhoids; F39 Unspecified mood [affective] disorder; E78.5 Hyperlipidemia, unspecified; E11.9 Type 2 diabetes mellitus without complications; I10 Essential (primary) hypertension; Z79.82 Long term (current) use of aspirin; Z79.899 Other long term (current) drug therapy; Z79.4 Long term (current) use of insulin; Z96.41 Presence of insulin pump (external) (internal)
CPT/HCPCS: 45378; 82962; J2003; J2704; J7120

== ENCOUNTER 2025-09-12 16:30 | Observation (INO) | payer MEDICARE, BC, SELFPAY ==
--- NOTE | 2025-09-12 16:52 | P.HP_ITS ---
History of Present Illness *Admission Date: 09/12/25 *Reason for visit:: Weakness *History of present illness: Eris Birch is a 59-year-old male who presented to [facility] in [facility] with acute on chronic weakness and some diaphoresis, then transferred to our facility for Afib RVR and NSTEMI. Patient states he had been feeling more weak than normal, and the weakness has been ongoing for many months. Workup at [place] remarkable for NSTEMI, A-fib RVR in the 120s, and sepsis secondary to UTI and was given IV ceftriaxone. Patient was given IV diltiazem bolus, transiently became hypotensive which improved with IV fluids there. Then started on IV diltiazem drip after they discussed case with Dr. Martel who recommended transfer to our facility for further evaluation and management. I spoke with ED provider at [place] and accepted patient for transfer. On my evaluation of patient, he was resting in bed comfortably without acute distress with at bedside. They state patient has been more weak than normal, without focal symptoms. No chest pain, shortness of breath, fever/chills, abdominal pain. 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 Endorses some foul-smelling stools with diarrhea over the past months. Workup here remarkable for WBC 13.4, creatinine 1.3, bicarb 20, troponin 0.29. BNP, CXR pending at this time. [facility] Disclaimer: The information contained in this section may have been updated after the patient was seen, as this information can be updated by other users. Medical History (Updated 09/12/25 @ 19:13 by Jabier Lo MD) History of neuropathy History of cardiac arrhythmia History of anxiety Mood disorder HLD (hyperlipidemia) SOB (shortness of breath) Diabetes HTN (hypertension) Surgical History History of hip replacement Family History Other Hyperlipidemia Hypertension Stroke Social History (Updated 09/12/25 @ 17:37 by Linda Song RN) Smoking Status: Never smoker second hand exposure: Yes alcohol intake: current alcohol intake frequency: a few times a month counseling given: No substance use type: denies use counseling given: No current occupational status: disabled Travel in the last 8 weeks?: None adopted: No caregiver/support person: No foster care: No household members: spouse and family housing: house lives independently: Yes marital status: number of children: 3 number of grandchildren: 2 education level: high school current occupational exposures/hazards: No Hx Recent Travel: No caffeine: Yes physical activity: none king/yarsanism: Jew special king needs: No working smoke detector in home: Yes fire extinguisher in home: Yes carbon monox detector in home: Yes firearms in home: Yes firearms unloaded and locked: Yes do you feel safe at home: Yes victim of physical abuse: No victim of emotional abuse: No victim of sexual abuse: No would you like helpful sources: No Have you lived/traveled outside US in past 30 days?: No Contact w/someone who lives/traveled outside US past 30 days?: No Exposure to someone with infectious disease in past 14 days?: No Do you have a fever (greater than 100.4 F or 38 C)?: No Have you tested positive for COVID-19?: No Exposed to someone with COVID-19 in past 14 days?: No Do you have a sore throat?: No Do you have a cough?: No Do you have any weakness?: No Are you experiencing any nausea/vomitting?: No Do you have any diarrhea?: No Are you experiencing any unusual bleeding?: No Do you have any muscle aches/pain?: No Do you have any abdominal pain?: No Are you experiencing loss of taste or smell?: No Other Medical History Have you received the Flu Vaccine for this season: No Have you received the Pneumonia Vaccine: No Meds Home Medications and Allergies Home Medications ?Medication ?Instructions ?Recorded ?Confirmed ?Type hydroxychloroquine 200 mg tablet 200 mg PO DAILY Arthr itis 05/21/20 09/12/25 History leflunomide 20 mg tablet 20 mg PO DAILY Arthritis 09/12/25 History aspirin 81 mg tablet,delayed 81 mg PO DAILY Blood thin ner 09/11/21 09/12/25 History release doxycycline hyclate 150 mg 100 mg PO DAILY . 10/08/21 09/12/25 History tablet,delayed release insulin aspart U-100 100 unit/mL 1 sliding scale dose SQ 05/02/23 12/16/25 History (3 mL) subcutaneous pen (Novolog USEASDIRECTD FlexPen U-100 Insulin aspart) blood-glucose sensor (Dexcom G6 #1 ea 08/28/23 History Sensor device) blood-glucose transmitter (Dexcom #1 ea 08/28/2309/12 History G6 Transmitter device) insulin pump cart,automated,BT #5 ea 08/28/23 09/12/25 History (Omnipod 5 G6 Pods (Gen 5) subcutaneous cartridge) blood pressure monitor #1 ea 04/24/25 09/12/25 Rx brexpiprazole 1 mg tablet (Rexulti) 1 mg PO DAILY #30 tabs 07/21/25 09/12/25 Rx amlodipine 10 mg tablet (Norvasc) 10 mg PO DAILY #30 t abs 08/17/25 09/12/25 Rx cholecalciferol (vitamin D3) 25 25 mcg PO DAILY 09/12/25 History mcg (1,000 unit) capsule hydroxyzine HCl 25 mg tablet 25 - 50 mg PO QPM PRN ins omnia 08/17/25 09/12/25 History nebivolol 10 mg tablet 10 mg PO DAILY bp #90 tabs 1 10/17/24 09/12/25 Rx meloxicam 15 mg tablet 15 mg PO DAILY #30 tabs 08/2809/12/25 Rx desvenlafaxine succinate 100 mg 50 mg PO DAILY 5 09/12/25 History tablet,extended release 24 hr (Pristiq) famotidine 40 mg tablet 40 mg PO DAILY 09/12/2508/28 History losartan 100 mg tablet 100 mg PO DAILY 09/12/25 History rosuvastatin 20 mg tablet 20 mg PO DAILY 09/12/2508/28 History New Prescriptions to Start Prescriptions: Allergies Allergy/AdvReac Type Severity Reaction Status Date / Time No Known Allergies Allergy Verified 08/17/25 09:02 Exam Constitutional Constitutional: no acute distress, obese and chronically ill appearing *Routine HEENT Exam Head: Present normocephalic Eye: Present EOMI and PERRL ENT: Present mucous membranes moist *Routine Neck Exam Neck: Present supple; Absent lymphadenopathy *Routine Respiratory Exam Respiratory: Present CTA bilaterally *Routine Cardiovascular Exam Cardiovascular: Present RRR *Routine Abdominal Exam Abdominal: Present soft and normoactive bowel sounds; Absent tenderness *Routine Rectal Exam Rectal:: deferred *Routine Genitalia Exam Genitalia:: deferred *Routine Extremities Exam Extremities: Present edema; Absent cyanosis or clubbing *Routine Skin Exam Skin: Present warm; Absent rash *Routine Neurological Exam Neurological: Present alert and oriented X3 Assessment and Plan *Assessment and plan (1) Atrial fibrillation with RVR: Status: Acute Category: Medical Code(s): I48.91 - Unspecified atrial fibrillation (2) NSTEMI (non-ST elevated myocardial infarction): Status: Acute Category: Medical Code(s): I21.4 - Non-ST elevation (NSTEMI) myocardial infarction (3) Type 2 diabetes mellitus: Status: Acute Category: Medical Code(s): E11.9 - Type 2 diabetes mellitus without complications Plan Eris Birch is a 59-year-old male who presented to [facility] in [facility] with acute on chronic weakness and some diaphoresis, then transferred to our facility for Afib RVR and NSTEMI. Patient states he had been feeling more weak than normal, and the weakness has been ongoing for many months. Workup at [place] remarkable for NSTEMI, A-fib RVR in the 120s, and sepsis secondary to UTI and was given IV ceftriaxone. Patient was given IV diltiazem bolus, transiently became hypotensive which improved with IV fluids there. Then started on IV diltiazem drip after they discussed case with Dr. Martel who recommended transfer to our facility for further evaluation and management. I spoke with ED provider at [place] and accepted patient for transfer. On my evaluation of patient, he was resting in bed comfortably without acute distress with at bedside. They state patient has been more weak than normal, without focal symptoms. No chest pain, shortness of breath, fever/chills, abdominal pain. 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 Endorses some foul-smelling stools with diarrhea over the past months. Workup here remarkable for WBC 13.4, creatinine 1.3, bicarb 20, troponin 0.29. #A-fib RVR, new onset #RVR, resolved #NSTEMI ? Patient presented with A-fib RVR admitted [facility], started on IV diltiazem drip and heparin drip. ? Upon arrival, patient was in normal sinus rhythm with heart rate in the 70s. ? Initial troponin 0.29, EKG without acute ischemic changes. No history of known ASCVD. ? Given one-time dose of therapeutic Lovenox. ? A1c 7.3%, TSH normal, follow-up LDL. ? Follow-up ECHO in the morning. ? Cardiology consulted, planning for C in the morning. ? Started diltiazem 120 mg, aspirin 81 mg, statin. ? Follow-up morning CBC, CMP. ? Follow-up BNP. #Weakness #UTI ? Urine grossly abnormal at [facility], given 1 dose of IV ceftriaxone. ? Continue IV ceftriaxone 1 g daily for total of 5 days. Day 10/02. ? Follow-up UA, urine, blood culture. ? Follow-up B12, folate. #Type 2 diabetes ? Hemoglobin A1c 7.3%. ? Has insulin pump in place, will use during admission. ? LDSSI, ACHS glucose checks. #Hypertension ? Hold home losartan for now as BP stable. #History of septic hip after hip replacement ? On chronic doxycycline daily. Hold as patient is getting ceftriaxone here. ? Has been having loose, foul-smelling stools. Follow-up stool PCR. #Mood disorder, anxiety/depression ? Continue home desvenlafaxine, brexpiprazole. #Suspected rheumatoid arthritis ? Hold home hydroxychloroquine, leflunomide until medication reconciliation. Full code DVT prophylaxis: Lovenox 40 mg Home meds: Pending pharmacy reconciliation.
--- NOTE | 2025-09-12 16:52 | PC.NURSE ---
Patient arrived to unit via EMS stretcher from [place] [id number]
[2025-09-12 16:54] VITALS: PULSE 80
--- NOTE | 2025-09-12 16:57 | ECG_ITS ---
APPROVED REPORT Exam: Resting ECG HR:73 bpm ECG Measurements Heart Rate 73 AXES CO 230 P 40 QRSd 104 QRS 87 QT 380 T 90 QTc 406 Conclusion SINUS RHYTHM WITH FIRST DEGREE AV BLOCK WITH OCCASIONAL SUPRAVENTRICULAR PREMATURE COMPLEXES NONSPECIFIC T-WAVE ABNORMALITY ABNORMAL ECG UNCONFIRMED REPORT Electronically signed by : Jose Negrete MD 09/13/2025 11:40:19
[2025-09-12 17:16] VITALS: BP 115/60; PULSE 75; RESP 19; TEMP 36.4; O2SAT 94; BMI 32.7
[2025-09-12 17:21] LABS: Hematocrit 35.0 % (42.0-52.0); Hemoglobin 11.6 g/dL (14.1-18.0); Immature Granulocytes % 0.8 %; Mean Corpuscular HGB Conc 33.1 g/dL (31.8-35.4); Mean Corpuscular Hemoglobin 27.5 pg (27.0-31.2); Mean Corpuscular Volume 82.9 fl (80-94); Nucleated Red Blood Cells % 0 %; Platelet Count 123 K/mm3 (142-424); Red Blood Count 4.22 M/mm3 (4.60-6.20); Red Cell Distribution Width-SD 41.1 fL; White Blood Count 13.4 K/mm3 (4.8-10.8)
[2025-09-12 17:35] LABS: Alanine Aminotransferase 27 U/L (12-78); Albumin Level 3.7 g/dl (3.5-5.0); Albumin/Globulin Ratio 1.4 (1.1-1.8); Alkaline Phosphatase 65 U/L (38-126); Anion Gap 11.4 mEq/L (5-15); Aspartate Amino Transferase 37 U/L (17-59); Bilirubin,Total 1.6 mg/dl (0.2-1.3); Blood Urea Nitrogen 40 mg/dl (9-20); Calcium 8.2 mg/dl (8.4-10.2); Carbon Dioxide 20 mmol/L (22.0-30.0); Chloride 107 mmol/L (98-107); Creatinine Clearance Estimated 90 mL/min (50-200); Creatinine,Serum 1.30 mg/dl (0.66-1.25); Estimated Glomerular Filt Rate 57 ml/min (>60); GFR (African American) 68 ML/MIN (>60); Globulin 2.7 g/dL (1.3-3.2); Glucose 233 mg/dl (74-100); Magnesium 1.7 mg/dl (1.6-2.3); Potassium 4.4 mmoL/L (3.5-5.1); Sodium 134 mmol/L (136-145); Total Protein,Serum 6.4 g/dl (6.3-8.2)
[2025-09-12 17:40] LABS: Hemoglobin A1C 7.3 % (4.0-6.0)
[2025-09-12 17:59] LABS: Troponin I 0.29 ng/ml (0.00-0.034)
[2025-09-12 18:06] LABS: Thyroid Stimulating Hormone 0.94 uIU/mL (0.465-4.68)
[2025-09-12] MEDS: MAGNESIUM SULFATE IN WATER 2 GM/50 ML PIGGYBACK IV ×2 (18:48→19:23)
[2025-09-12] MEDS: dilTIAZem ER 120MG CAPSULE 120 MG PO (18:48)
--- NOTE | 2025-09-12 18:49 | XR_ITS ---
PROCEDURE INFORMATION: Exam: XR Chest Exam date and time: 09/12/2025 7:36 PM Age: 59 years old Clinical indication: Other: Weakness; Additional info: Concern for heart failure, weakness TECHNIQUE: Imaging protocol: Radiologic exam of the chest. Views: 1 view. Total images: 1 COMPARISON: CT - [facility] CT angio UE LT 04/13/2019 10:56 AM FINDINGS: Tubes, catheters and devices: EKG leads are present. Lungs: Unremarkable. No consolidation. No pulmonary vascular congestion or edema. Pleural spaces: Unremarkable. No pleural effusion. No pneumothorax. Heart/Mediastinum: Mild cardiomegaly. No mediastinal widening or hilar enlargement. Diaphragm: Mild elevation right hemidiaphragm. Bones/joints: Unremarkable. Other findings: Lordotic position. IMPRESSION: 1. No radiographically acute cardiopulmonary process. 2. Mild cardiomegaly.
[2025-09-12 19:00] VITALS: BP 113/62; PULSE 83; RESP 15; O2SAT 92
[2025-09-12 19:52] LABS: POC Glucose,Bedside 282 gm/dL (70-110)
[2025-09-12 20:00] VITALS: BP 104/59; PULSE 78; PULSE 81; RESP 21; O2SAT 90
[2025-09-12] MEDS: ATORVASTATIN 40MG TABLET 40 MG PO (20:00)
[2025-09-12 20:09] LABS: NT Pro Brain Natriuretic Pep. 1720 pg/mL (0-125)
--- NOTE | 2025-09-12 20:24 | PC.NURSE ---
When completing assessment and obtaining FSBS from patient, I asked patient when entering room where he would like his 6un of insulin injected for a FSBS of 282. Patient glucometer reading 287 at present. Patient and who is at bedside both state that Dr. Lo informed them prior on day shift that patient is allowed to use dexcom and insulin pump during hospital stay. Patient then delivered 6 units insulin per pump at this time. Nursing insulin that was drawn up discarded in sharps bin. Hospitalist aware of event. No new orders at this time.
[2025-09-12 21:45] LABS: Microscopic, Urine URINE MICROSCOPIC (MICROSCOPIC)
[2025-09-12 21:54] LABS: Bilirubin,Urine Negative (Negative); Color,Urine YELLOW (Yellow); Glucose,Urine (UA) TRACE (Negative); Ketones,Urine Negative (Negative); Leukocyte Esterase,Urine Negative (Negative); PH,Urine 6.0 (5.0-8.5); Protein,Urine TRACE (Negative); Specific Gravity, Urine 1.025 (1.005-1.030); Urobilinogen,Urine 0.2 EU/dl (0.2)
[2025-09-12 22:00] VITALS: BP 104/50; PULSE 84; RESP 19; O2SAT 98
[2025-09-12 22:22] LABS: Bacteria,Urine 3+ /lpf; Hyaline Casts,Urine OCC #/lpf (0); Mucus,Urine 1+ /lpf
[2025-09-13] VITALS (8 sets, daily range): BP systolic 120–149; BP diastolic 48–78; PULSE 81–98; RESP 14–22; TEMP 36.7; O2SAT 88–94; BMI 31.8
[2025-09-13 06:13] LABS: POC Glucose,Bedside 119 gm/dL (70-110)
[2025-09-13 06:46] LABS: Hematocrit 35.8 % (42.0-52.0); Hemoglobin 11.5 g/dL (14.1-18.0); Immature Granulocytes % 0.5 %; Mean Corpuscular HGB Conc 32.1 g/dL (31.8-35.4); Mean Corpuscular Hemoglobin 27.2 pg (27.0-31.2); Mean Corpuscular Volume 84.6 fl (80-94); Nucleated Red Blood Cells % 0 %; Platelet Count 101 K/mm3 (142-424); Red Blood Count 4.23 M/mm3 (4.60-6.20); Red Cell Distribution Width-SD 42.5 fL; White Blood Count 7.6 K/mm3 (4.8-10.8)
[2025-09-13 07:07] LABS: Albumin Level 3.5 g/dl (3.5-5.0); Chloride 108 mmol/L (98-107); Potassium 3.6 mmoL/L (3.5-5.1); Sodium 135 mmol/L (136-145)
[2025-09-13 07:09] LABS: Alanine Aminotransferase 27 U/L (12-78); Aspartate Amino Transferase 53 U/L (17-59); Blood Urea Nitrogen 32 mg/dl (9-20); Creatinine Clearance Estimated 103 mL/min (50-200); Creatinine,Serum 1.10 mg/dl (0.66-1.25); Estimated Glomerular Filt Rate 69 ml/min (>60); GFR (African American) 83 ML/MIN (>60)
[2025-09-13 07:10] LABS: Albumin/Globulin Ratio 1.3 (1.1-1.8); Alkaline Phosphatase 63 U/L (38-126); Anion Gap 5.6 mEq/L (5-15); Bilirubin,Total 1.8 mg/dl (0.2-1.3); Calcium 8.1 mg/dl (8.4-10.2); Carbon Dioxide 25 mmol/L (22.0-30.0); Cholesterol 96 mg/dl (140-200); Globulin 2.8 g/dL (1.3-3.2); Glucose 119 mg/dl (74-100); HDL Cholesterol 30 mg/dl (40-60); Magnesium 2.7 mg/dl (1.6-2.3); Total Protein,Serum 6.3 g/dl (6.3-8.2); Triglycerides 181 mg/dl (30-150)
[2025-09-13] MEDS: dilTIAZem ER 120MG CAPSULE 120 MG PO (08:25)
[2025-09-13] MEDS: CEFTRIAXONE 1 GM 1 GM in 0.9 % SODIUM CHLORIDE 50 ML IV (08:25)
[2025-09-13] MEDS: FAMOTIDINE 20MG TABLET 40 MG PO (08:25)
[2025-09-13] MEDS: ASPIRIN EC 81MG TABLET 81 MG PO (08:25)
--- NOTE | 2025-09-13 08:39 | CA_ITS ---
FINAL REPORT CLINICAL HISTORY: Bilateral pedal edema, Afib FINDINGS: Multiple transverse and longitudinal scans were performed of the femoral popliteal deep venous system, with augmentation and compression maneuvers. Normal phasic flow was noted in the visualized deep venous system. No intraluminal increased echogenicity is noted to suggest thrombus. There is normal compression and augmentation of the venous structures. No abnormal venous collaterals are seen. IMPRESSION: No evidence of deep venous thrombosis of the bilateral lower extremities. Reviewed, Interpreted and Dictated by Caroline Ruth MD Transcribed by Edwina Arizmendi Authenticated and [facility]
--- NOTE | 2025-09-13 09:05 | EXP.CARD.CON ---
History of Present Illness History of Present Illness Consult date: 09/13/25 Requesting physician: Jabier Lo Chief complaint: Chronic weakness, diaphoresis History of present illness: Hospitalist Note: Eris Birch is a 59-year-old male who presented to [facility] in [facility] with acute on chronic weakness and some diaphoresis, then transferred to our facility for Afib RVR and NSTEMI. Patient states he had been feeling more weak than normal, and the weakness has been ongoing for many months. Workup at [place] remarkable for NSTEMI, A-fib RVR in the 120s, and sepsis secondary to UTI and was given IV ceftriaxone. Patient was given IV diltiazem bolus, transiently became hypotensive which improved with IV fluids there. Then started on IV diltiazem drip after they discussed case with Dr. Martel who recommended transfer to our facility for further evaluation and management. I spoke with ED provider at [place] and accepted patient for transfer. On my evaluation of patient, he was resting in bed comfortably without acute distress with at bedside. They state patient has been more weak than normal, without focal symptoms. No chest pain, shortness of breath, fever/chills, abdominal pain. 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 Endorses some foul-smelling stools with diarrhea over the past months. Workup here remarkable for WBC 13.4, creatinine 1.3, bicarb 20, troponin 0.29. BNP, CXR pending at this time. Cardiology note: Patient transferred to [facility] from [place] with concern for afib rvr and NSTEMI. Patient presented to [place] with complaint of generalized weakness, fatigue, diarrhea and diaphoresis. reports hasn't felt good the last few weeks. Patient denies chest pain, soa, dizziness. Upon presentation to [place] patient was found to be in afib rvr. UTI and sepsis present. Troponin was elevated. Patient was transferred here for cardiology evaluation. This morning, patient reports he is feeling someone better, just fatigued. Continues to deny chest pain. EKG from this facility shows NSR with a first degree AV block, non specific ST changes, negative for stemi, rate 73. Troponins here 0.29. Chest xray negative for acute process. Stool is pending. Echo pending. History of septic hip on chronic doxy. [facility] Disclaimer: The information contained in this section may have been updated after the patient was seen, as this information can be updated by other users. Medical History (Updated 09/13/25 @ 10:01 by Rhea Prasad APRN) History of neuropathy History of cardiac arrhythmia History of anxiety Mood disorder HLD (hyperlipidemia) SOB (shortness of breath) Diabetes HTN (hypertension) Surgical History History of hip replacement Family History Other Hyperlipidemia Hypertension Stroke Social History (Updated 09/12/25 @ 17:37 by Linda Song RN) Smoking Status: Never smoker second hand exposure: Yes alcohol intake: current alcohol intake frequency: a few times a month counseling given: No substance use type: denies use counseling given: No current occupational status: disabled Travel in the last 8 weeks?: None adopted: No caregiver/support person: No foster care: No household members: spouse and family housing: house lives independently: Yes marital status: number of children: 3 number of grandchildren: 2 education level: high school current occupational exposures/hazards: No Hx Recent Travel: No caffeine: Yes physical activity: none king/amish: Jewish special king needs: No working smoke detector in home: Yes fire extinguisher in home: Yes carbon monox detector in home: Yes firearms in home: Yes firearms unloaded and locked: Yes do you feel safe at home: Yes victim of physical abuse: No victim of emotional abuse: No victim of sexual abuse: No would you like helpful sources: No Have you lived/traveled outside [place] in past 30 days?: No Contact w/someone who lives/traveled outside US past 30 days?: No Exposure to someone with infectious disease in past 14 days?: No Do you have a fever (greater than 100.4 F or 38 C)?: No Have you tested positive for COVID-19?: No Exposed to someone with COVID-19 in past 14 days?: No Do you have a sore throat?: No Do you have a cough?: No Do you have any weakness?: No Are you experiencing any nausea/vomitting?: No Do you have any diarrhea?: No Are you experiencing any unusual bleeding?: No Do you have any muscle aches/pain?: No Do you have any abdominal pain?: No Are you experiencing loss of taste or smell?: No Review of Systems Review of Systems Review of systems:: pertinent systems reviewed and negative unless documented below Constitutional Constitutional: Reports weakness *Cardiovascular Cardiovascular: Denies chest pain and Denies dyspnea *Respiratory Respiratory: Denies dyspnea *Neurologic Neurologic: Reports weakness Exam Data for Last 24 hours Vital signs and Labs for Last 24 Hours: Temp Pulse Resp BP Pulse Ox O2 Del Method O2 Flow Rate 98.0 F 85 14 145/78 H 93 L Nasal Cannula 2 09/13/25 00:00 09/13/25 08:00 09/13/25 06:00 09/13/25 07:44 09/13/25 07:44 09/13/25 08:47 09/13/25 08:47 Laboratory Results - last 24 hr 09/12/25 17:07: WBC 13.4 H, RBC 4.22 L, Hgb 11.6 L, Hct 35.0 L, MCV 82.9, MCH 27.5, MCHC 33.1, RDW 13.7, Plt Count 123 L, MPV 10.1, Neut % (Auto) 84.2 H, Lymph % (Auto) 5.4 L, Meagher % (Auto) 7.0, Eos % (Auto) 2.2, Baso % (Auto) 0.4, Neut # (Auto) 11.3 H, Lymph # (Auto) 0.7, Meagher # (Auto) 0.9, Eos # (Auto) 0.3, Baso # (Auto) 0.1, Sodium 134 L, Potassium 4.4, Chloride 107, Carbon Dioxide 20 L, Anion Gap 11.4, BUN 40 H, Creatinine 1.30 H, Estimated Creat Clear 90, Estimated GFR 57 L, Est GFR ( Amer) 68, Glucose 233 H, Hemoglobin A1c 7.3 H, Calcium 8.2 L, Magnesium 1.7, Total Bilirubin 1.6 H, AST 37, ALT 27, Alkaline Phosphatase 65, Troponin I 0.29 H, Total Protein 6.4, Albumin 3.7, Globulin 2.7, Albumin/Globulin Ratio 1.4, TSH 0.94 09/12/25 19:32: NT-Pro-B Natriuret Pep 1720 H 09/12/25 19:42: POC Glucose 282 H 09/12/25 21:37: Urine Color Yellow, Urine Appearance Clear, Urine pH 6.0, Ur Specific Beatrice 1.025, Urine Protein Trace, Urine Glucose (UA) Trace, Urine Ketones Negative, Urine Blood 1+ A, Urine Nitrate Negative, Urine Bilirubin Negative, Urine Urobilinogen 0.2, Ur Leukocyte Esterase Negative, Urine RBC 10-20, Urine WBC 5-10, Ur Squamous Epith Cells 3-5, Urine Bacteria 3+, Hyaline Casts Occ, Urine Mucus 1+ 09/13/25 06:05: POC Glucose 119 H 09/13/25 06:09: WBC 7.6 D, RBC 4.23 L, Hgb 11.5 L, Hct 35.8 L, MCV 84.6, MCH 27.2, MCHC 32.1, RDW 13.8, Plt Count 101 L, MPV 10.6 H, Neut % (Auto) 77.5, Lymph % (Auto) 11.9, Meagher % (Auto) 9.1, Eos % (Auto) 0.7, Baso % (Auto) 0.3, Neut # (Auto) 5.9, Lymph # (Auto) 0.9, Meagher # (Auto) 0.7, Eos # (Auto) 0.1, Baso # (Auto) 0.0, Sodium 135 L, Potassium 3.6, Chloride 108 H, Carbon Dioxide 25, Anion Gap 5.6, BUN 32 H, Creatinine 1.10, Estimated Creat Clear 103, Estimated GFR 69, Est GFR ( Amer) 83 D, Glucose 119 H D, Calcium 8.1 L, Magnesium 2.7 H D, Total Bilirubin 1.8 H, AST 53 D, ALT 27, Alkaline Phosphatase 63, Total Protein 6.3, Albumin 3.5, Globulin 2.8, Albumin/Globulin Ratio 1.3, Triglycerides 181 H, Cholesterol 96 L, LDL Cholesterol Direct 50.15 L, VLDL Cholesterol 36, HDL Cholesterol 30 L, Cholesterol/HDL Ratio 3.2 I & O for Last 24 hours: Intake & Output 09/10/25 09/11/25 09/12/25 09/13/25 23:59 23:59 23:59 23:59 Intake Total 340 / 840 500 / 500 Output Total 1050 / 1050 250 / 250 Balance -710 / -210 250 / 250 Weight 228 lb 4 oz 222 lb 9.6 oz Constitutional Constitutional: no acute distress *Routine Respiratory Exam Respiratory: Present CTA bilaterally and symmetric chest movement *Routine Cardiovascular Exam Cardiovascular: Present RRR, Normal S1 and Normal S2 *Routine Abdominal Exam Abdominal: Present soft and normoactive bowel sounds; Absent tenderness *Routine Extremities Exam Extremities: Present full ROM and normal capillary refill; Absent edema *Routine Skin Exam Skin: Present intact, dry and warm Detailed Neck Exam: Thyroids Thyroid: Absent bruit Meds Home Medications and Allergies Home Medications ?Medication ?Instructions ?Recorded ?Confirmed ?Type hydroxychloroquine 200 mg tablet 200 mg PO DAILY Arthritis 05/21/20 09/13/25 History leflunomide 20 mg tablet 20 mg PO DAILY Arthritis 05/21/20 09/13/25 History aspirin 81 mg tablet,delayed 81 mg PO DAILY 09/11/21 09/13/25 History release insulin aspart U-100 100 unit/mL 0 sliding scale dose SQ DIRECTED 01/27/23 09/13/25 History (3 mL) subcutaneous pen (Novolog FlexPen U-100 Insulin aspart) blood-glucose sensor (Dexcom G6 #1 ea 08/28/23 09/12/25 History Sensor device) blood-glucose transmitter (Dexcom #1 ea 08/28/23 09/12/25 History G6 Transmitter device) insulin pump cart,automated,BT #5 ea 08/28/23 09/12/25 History (Omnipod 5 G6 Pods (Gen 5) subcutaneous cartridge) blood pressure monitor #1 ea 04/24/25 09/12/25 Rx brexpiprazole 1 mg tablet (Rexulti) 1 mg PO DAILY #30 tabs 07/21/25 09/13/25 Rx amlodipine 10 mg tablet (Norvasc) 10 mg PO DAILY #30 tabs 08/17/25 09/13/25 Rx cholecalciferol (vitamin D3) 25 25 mcg PO DAILY 08/17/25 09/12/25 History mcg (1,000 unit) capsule nebivolol 10 mg tablet 10 mg PO DAILY bp #90 tabs 08/17/25 09/13/25 Rx meloxicam 15 mg tablet 15 mg PO DAILY #30 tabs 09/11/25 09/13/25 Rx desvenlafaxine succinate 100 mg 100 mg PO DAILY 09/12/25 09/13/25 History tablet,extended release 24 hr (Pristiq) famotidine 40 mg tablet 40 mg PO DAILY 09/12/25 09/13/25 History losartan 100 mg tablet 100 mg PO DAILY 09/12/25 09/13/25 History rosuvastatin 20 mg tablet 20 mg PO DAILY 09/12/25 09/13/25 History doxycycline hyclate 100 mg capsule 100 mg PO DAILY 09/13/25 09/13/25 History hydroxyzine HCl 50 mg tablet 50 mg PO HS 09/13/25 09/13/25 History New Prescriptions to Start Prescriptions: Allergies Allergy/AdvReac Type Severity Reaction Status Date / Time No Known Allergies Allergy Verified 08/17/25 09:02 Assessment and Plan *Assessment and plan (1) Atrial fibrillation with RVR: Status: Acute Category: Medical Code(s): I48.91 - Unspecified atrial fibrillation (2) Elevated troponin: Status: Acute Category: Medical Code(s): R79.89 - Other specified abnormal findings of blood chemistry (3) Urinary tract infection: Status: Acute Category: Medical Code(s): N39.0 - Urinary tract infection, site not specified Plan Acute myocardial injury Elevated troponin In the setting of UTI. Troponin 0.26. Likely secondary to acute illness. EKG is normal sinus rhythm with first-degree AV block, rate 70s, nonspecific ST changes. Negative for STEMI Echocardiogram shows an EF of 60 to 65%, no significant valvular stenosis or regurg, no wall motion abnormalities noted. Official read is pending. Recommend fluids for hyperdynamic ventricle. Continue aspirin and statin No plan for intervention at this time. Will need outpatient ischemic evaluation Paroxysmal atrial fibrillation A-fib RVR on presentation Currently normal sinus rhythm Continue diltiazem 120 mg p.o. daily Start Xarelto 20 mg p.o. daily BNP 1720 likely secondary to A-fib RVR. No signs of volume overload noted. 2-week event monitor at discharge Urinary tract infection Weakness Defer to primary service CV summary 09/13/2025: Patient is CV stable for discharge home. Elevated troponin likely secondary to acute illness. Echocardiogram shows an EF of 60 to 65%. Please discharge patient home and 2-week event monitor for A-fib. Have patient follow-up in cardiology clinic in 1 week for reevaluation and outpatient ischemic evaluation. Cardiac meds: Aspirin 81 mg p.o. daily Atorvastatin 40 mg p.o. daily Diltiazem 120 mg p.o. daily Xarelto 20 mg p.o. daily
--- NOTE | 2025-09-13 09:22 | HMH.PHAAMS2 ---
- Antimicrobial Stewardship Review IV to PO conversion Stewardship interventions: culture & sensitivity review (CURRENTLY RECEIVING ROCEPHIN, WBC DOWN FROM 13.4K TO 7.6K TODAY, AFEBRILE, CX PENDING.)
--- NOTE | 2025-09-13 09:57 | HMH.PHAINT1 ---
Pharmacy Intervention Comments: MEDICATION RECONCILIATION COMPLETE USING EXTERNAL PHARMACY FILL HISTORY, RECENT BEHAVIORAL HEALTH OFFICE VISIT NOTE.
[2025-09-13 10:05] LABS: Vitamin B12 302 pg/mL (239-931)
--- NOTE | 2025-09-13 10:56 | EXP.DC.SUM ---
General Admission date:: 09/12/25 HPI HPI HPI: Eris Birch is a 59-year-old male who presented to [facility] in [facility] with acute on chronic weakness and some diaphoresis, then transferred to our facility for Afib RVR and NSTEMI. Patient states he had been feeling more weak than normal, and the weakness has been ongoing for many months. Workup at [place] remarkable for NSTEMI, A-fib RVR in the 120s, and sepsis secondary to UTI and was given IV ceftriaxone. Patient was given IV diltiazem bolus, transiently became hypotensive which improved with IV fluids there. Then started on IV diltiazem drip after they discussed case with Dr. Martel who recommended transfer to our facility for further evaluation and management. I spoke with ED provider at [place] and accepted patient for transfer. On my evaluation of patient, he was resting in bed comfortably without acute distress with at bedside. They state patient has been more weak than normal, without focal symptoms. No chest pain, shortness of breath, fever/chills, abdominal pain. 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 Endorses some foul-smelling stools with diarrhea over the past months. Workup here remarkable for WBC 13.4, creatinine 1.3, bicarb 20, troponin 0.29. BNP, CXR pending at this time. Hospital Course Hospital Course Hospital Course: Eris Birch is a 59-year-old male who presented to [facility] in [facility] with acute on chronic weakness and some diaphoresis, then transferred to our facility for Afib RVR and NSTEMI. Patient states he had been feeling more weak than normal, and the weakness has been ongoing for many months. Workup at [place] remarkable for NSTEMI, A-fib RVR in the 120s, and sepsis secondary to UTI and was given IV ceftriaxone. Patient was given IV diltiazem bolus, transiently became hypotensive which improved with IV fluids there. Then started on IV diltiazem drip after they discussed case with Dr. Martel who recommended transfer to our facility for further evaluation and management. I spoke with ED provider at [place] and accepted patient for transfer. On my evaluation of patient, he was resting in bed comfortably without acute distress with at bedside. They state patient has been more weak than normal, without focal symptoms. No chest pain, shortness of breath, fever/chills, abdominal pain. 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 Endorses some foul-smelling stools with diarrhea over the past months. Workup here remarkable for WBC 13.4, creatinine 1.3, bicarb 20, troponin 0.29. #A-fib RVR, new onset #RVR, resolved #NSTEMI, type II ? Patient presented with A-fib RVR admitted [facility], started on IV diltiazem drip and heparin drip. ? Upon arrival, patient was in normal sinus rhythm with heart rate in the 70s. ? Initial troponin 0.29, EKG without acute ischemic changes. No history of known ASCVD. ? ECHO on 09/13/2025 revealed LVEF 60 to 65% without wall motion abnormalities. ? A1c 7.3%, TSH normal, LDL 50. ? Patient converted to NSR on IV diltiazem drip. Transition to oral diltiazem 120 mg (discontinued home Nebivolol, amlodipine), Xarelto 20 mg daily. ? Discussed with cardiology, no plan for ischemic intervention at this time as they believe NSTEMI type II is likely from demand ischemia from A-fib RVR, sepsis from UTI as below. Will plan for outpatient ischemic workup. ? Discharged with diltiazem 120 mg, Xarelto 20 mg. Continue aspirin 81 mg. ? Follow-up with cardiology within 1 week. #Sepsis, resolved #Weakness #UTI ? Urine grossly abnormal at [facility], given 1 dose of IV ceftriaxone. Tachycardic and [facility], with leukocytosis. ? Weakness improved with IV ceftriaxone, transitioned to levofloxacin 750 mg daily for 5 more days. Will follow-up and urine culture. #Type 2 diabetes ? Hemoglobin A1c 7.3%. Continue insulin pump. #Hypertension ?Continue home losartan. Discontinued home amlodipine as diltiazem started as above. #History of septic hip after hip replacement ? On chronic doxycycline 100 mg daily. ? Has been having loose, foul-smelling stools, stool PCR normal. No C. difficile. #Mood disorder, anxiety/depression ? Continue home desvenlafaxine, brexpiprazole. #Suspected rheumatoid arthritis ?Continue home hydroxychloroquine, leflunomide. Total time spent on discharge: 32 minutes on chart review, counseling, documentation, and direct care with patient. Exam Data for Last 24 hours Vital signs and Labs for Last 24 Hours: Temp Pulse Resp BP Pulse Ox O2 Del Method O2 Flow Rate 98.0 F 98 H 14 149/78 H 92 L Room Air 91 09/13/25 00:00 09/13/25 09:54 09/13/25 06:00 09/13/25 09:54 09/13/25 09:54 09/13/25 10:42 09/13/25 10:42 Laboratory Results - last 24 hr 09/12/25 17:07: WBC 13.4 H, RBC 4.22 L, Hgb 11.6 L, Hct 35.0 L, MCV 82.9, MCH 27.5, MCHC 33.1, RDW 13.7, Plt Count 123 L, MPV 10.1, Neut % (Auto) 84.2 H, Lymph % (Auto) 5.4 L, [place] % (Auto) 7.0, Eos % (Auto) 2.2, Baso % (Auto) 0.4, Neut # (Auto) 11.3 H, Lymph # (Auto) 0.7, [place] # (Auto) 0.9, Eos # (Auto) 0.3, Baso # (Auto) 0.1, Sodium 134 L, Potassium 4.4, Chloride 107, Carbon Dioxide 20 L, Anion Gap 11.4, BUN 40 H, Creatinine 1.30 H, Estimated Creat Clear 90, Estimated GFR 57 L, Est GFR ( Amer) 68, Glucose 233 H, Hemoglobin A1c 7.3 H, Calcium 8.2 L, Magnesium 1.7, Total Bilirubin 1.6 H, AST 37, ALT 27, Alkaline Phosphatase 65, Troponin I 0.29 H, Total Protein 6.4, Albumin 3.7, Globulin 2.7, Albumin/Globulin Ratio 1.4, TSH 0.94 09/12/25 19:32: NT-Pro-B Natriuret Pep 1720 H 09/12/25 19:42: POC Glucose 282 H 09/12/25 21:37: Urine Color Yellow, Urine Appearance Clear, Urine pH 6.0, Ur Specific [place] 1.025, Urine Protein Trace, Urine Glucose (UA) Trace, Urine Ketones Negative, Urine Blood 1+ A, Urine Nitrate Negative, Urine Bilirubin Negative, Urine Urobilinogen 0.2, Ur Leukocyte Esterase Negative, Urine RBC 10-20, Urine WBC 5-10, Ur Squamous Epith Cells 3-5, Urine Bacteria 3+, Hyaline Casts Occ, Urine Mucus 1+ 09/13/25 06:05: POC Glucose 119 H 09/13/25 06:09: WBC 7.6 D, RBC 4.23 L, Hgb 11.5 L, Hct 35.8 L, MCV 84.6, MCH 27.2, MCHC 32.1, RDW 13.8, Plt Count 101 L, MPV 10.6 H, Neut % (Auto) 77.5, Lymph % (Auto) 11.9, Newton % (Auto) 9.1, Eos % (Auto) 0.7, Baso % (Auto) 0.3, Neut # (Auto) 5.9, Lymph # (Auto) 0.9, Newton # (Auto) 0.7, Eos # (Auto) 0.1, Baso # (Auto) 0.0, Sodium 135 L, Potassium 3.6, Chloride 108 H, Carbon Dioxide 25, Anion Gap 5.6, BUN 32 H, Creatinine 1.10, Estimated Creat Clear 103, Estimated GFR 69, Est GFR ( Amer) 83 D, Glucose 119 H D, Calcium 8.1 L, Magnesium 2.7 H D, Total Bilirubin 1.8 H, AST 53 D, ALT 27, Alkaline Phosphatase 63, Total Protein 6.3, Albumin 3.5, Globulin 2.8, Albumin/Globulin Ratio 1.3, Triglycerides 181 H, Cholesterol 96 L, LDL Cholesterol Direct 50.15 L, VLDL Cholesterol 36, HDL Cholesterol 30 L, Cholesterol/HDL Ratio 3.2, Vitamin B12 302 Temp Pulse Resp BP Pulse Ox O2 Del Method O2 Flow Rate 98.0 F 85 14 145/78 H 93 L Nasal Cannula 2 09/13/25 00:00 09/13/25 08:00 09/13/25 06:00 09/13/25 07:44 09/13/25 07:44 09/13/25 08:47 09/13/25 08:47 Laboratory Results - last 24 hr 09/12/25 17:07: WBC 13.4 H, RBC 4.22 L, Hgb 11.6 L, Hct 35.0 L, MCV 82.9, MCH 27.5, MCHC 33.1, RDW 13.7, Plt Count 123 L, MPV 10.1, Neut % (Auto) 84.2 H, Lymph % (Auto) 5.4 L, [place] % (Auto) 7.0, Eos % (Auto) 2.2, Baso % (Auto) 0.4, Neut # (Auto) 11.3 H, Lymph # (Auto) 0.7, Newton # (Auto) 0.9, Eos # (Auto) 0.3, Baso # (Auto) 0.1, Sodium 134 L, Potassium 4.4, Chloride 107, Carbon Dioxide 20 L, Anion Gap 11.4, BUN 40 H, Creatinine 1.30 H, Estimated Creat Clear 90, Estimated GFR 57 L, Est GFR ( Amer) 68, Glucose 233 H, Hemoglobin A1c 7.3 H, Calcium 8.2 L, Magnesium 1.7, Total Bilirubin 1.6 H, AST 37, ALT 27, Alkaline Phosphatase 65, Troponin I 0.29 H, Total Protein 6.4, Albumin 3.7, Globulin 2.7, Albumin/Globulin Ratio 1.4, TSH 0.94 09/12/25 19:32: NT-Pro-B Natriuret Pep 1720 H 09/12/25 19:42: POC Glucose 282 H 09/12/25 21:37: Urine Color Yellow, Urine Appearance Clear, Urine pH 6.0, Ur Specific [place] 1.025, Urine Protein Trace, Urine Glucose (UA) Trace, Urine Ketones Negative, Urine Blood 1+ A, Urine Nitrate Negative, Urine Bilirubin Negative, Urine Urobilinogen 0.2, Ur Leukocyte Esterase Negative, Urine RBC 10-20, Urine WBC 5-10, Ur Squamous Epith Cells 3-5, Urine Bacteria 3+, Hyaline Casts Occ, Urine Mucus 1+ 09/13/25 06:05: POC Glucose 119 H 09/13/25 06:09: WBC 7.6 D, RBC 4.23 L, Hgb 11.5 L, Hct 35.8 L, MCV 84.6, MCH 27.2, MCHC 32.1, RDW 13.8, Plt Count 101 L, MPV 10.6 H, Neut % (Auto) 77.5, Lymph % (Auto) 11.9, Newton % (Auto) 9.1, Eos % (Auto) 0.7, Baso % (Auto) 0.3, Neut # (Auto) 5.9, Lymph # (Auto) 0.9, [place] # (Auto) 0.7, Eos # (Auto) 0.1, Baso # (Auto) 0.0, Sodium 135 L, Potassium 3.6, Chloride 108 H, Carbon Dioxide 25, Anion Gap 5.6, BUN 32 H, Creatinine 1.10, Estimated Creat Clear 103, Estimated GFR 69, Est GFR ( Amer) 83 D, Glucose 119 H D, Calcium 8.1 L, Magnesium 2.7 H D, Total Bilirubin 1.8 H, AST 53 D, ALT 27, Alkaline Phosphatase 63, Total Protein 6.3, Albumin 3.5, Globulin 2.8, Albumin/Globulin Ratio 1.3, Triglycerides 181 H, Cholesterol 96 L, LDL Cholesterol Direct 50.15 L, VLDL Cholesterol 36, HDL Cholesterol 30 L, Cholesterol/HDL Ratio 3.2 I & O for Last 24 hours: Intake & Output 09/10/25 09/11/25 09/12/25 09/13/25 23:59 23:59 23:59 23:59 Intake Total 340 / 840 550 / 550 Output Total 1050 / 1050 500 / 500 Balance -710 / -210 50 / 50 Weight 103.532 kg 100.97 kg Intake & Output 09/10/25 09/11/25 09/12/25 09/13/25 23:59 23:59 23:59 23:59 Intake Total 340 / 840 500 / 500 Output Total 1050 / 1050 250 / 250 Balance -710 / -210 250 / 250 Weight 228 lb 4 oz 222 lb 9.6 oz Constitutional Constitutional: no acute distress *Routine Respiratory Exam Respiratory: Present CTA bilaterally and symmetric chest movement *Routine Cardiovascular Exam Cardiovascular: Present RRR, Normal S1 and Normal S2 *Routine Abdominal Exam Abdominal: Present soft and normoactive bowel sounds; Absent tenderness *Routine Extremities Exam Extremities: Present full ROM and normal capillary refill; Absent edema *Routine Skin Exam Skin: Present intact, dry and warm Detailed Neck Exam: Thyroids Thyroid: Absent bruit Results Data Completed and Pending Labs on day of discharge: Labs from last 24 hours 09/13/25 09/13/25 09/12/25 06:09 06:05 21:37 WBC 7.6 D RBC 4.23 L Hgb 11.5 L Hct 35.8 L MCV 84.6 MCH 27.2 MCHC 32.1 RDW 13.8 Plt Count 101 L MPV 10.6 H Neut % (Auto) 77.5 Lymph % (Auto) 11.9 [place] % (Auto) 9.1 Eos % (Auto) 0.7 Baso % (Auto) 0.3 Neut # (Auto) 5.9 Lymph # (Auto) 0.9 [place] # (Auto) 0.7 Eos # (Auto) 0.1 Baso # (Auto) 0.0 Sodium 135 L Potassium 3.6 Chloride 108 H Carbon Dioxide 25 Anion Gap 5.6 BUN 32 H Creatinine 1.10 Estimated Creat Clear 103 Estimated GFR 69 Est GFR ( Amer) 83 D Glucose 119 H D POC Glucose 119 H Hemoglobin A1c Calcium 8.1 L Magnesium 2.7 H D Total Bilirubin 1.8 H AST 53 D ALT 27 Alkaline Phosphatase 63 Troponin I NT-Pro-B Natriuret Pep Total Protein 6.3 Albumin 3.5 Globulin 2.8 Albumin/Globulin Ratio 1.3 Triglycerides 181 H Cholesterol 96 L LDL Cholesterol Direct 50.15 L VLDL Cholesterol 36 HDL Cholesterol 30 L Cholesterol/HDL Ratio 3.2 Vitamin B12 302 TSH Urine Color Yellow Urine Appearance Clear Urine pH 6.0 Ur Specific [place] 1.025 Urine Protein Trace Urine Glucose (UA) Trace Urine Ketones Negative Urine Blood 1+ A Urine Nitrate Negative Urine Bilirubin Negative Urine Urobilinogen 0.2 Ur Leukocyte Esterase Negative Urine RBC 10-20 Urine WBC 5-10 Ur Squamous Epith Cells 3-5 Urine Bacteria 3+ Hyaline Casts Occ Urine Mucus 1+ 09/12/25 09/12/25 09/12/25 19:42 19:32 17:07 WBC 13.4 H RBC 4.22 L Hgb 11.6 L Hct 35.0 L MCV 82.9 MCH 27.5 MCHC 33.1 RDW 13.7 Plt Count 123 L MPV 10.1 Neut % (Auto) 84.2 H Lymph % (Auto) 5.4 L [place] % (Auto) 7.0 Eos % (Auto) 2.2 Baso % (Auto) 0.4 Neut # (Auto) 11.3 H Lymph # (Auto) 0.7 [place] # (Auto) 0.9 Eos # (Auto) 0.3 Baso # (Auto) 0.1 Sodium 134 L Potassium 4.4 Chloride 107 Carbon Dioxide 20 L Anion Gap 11.4 BUN 40 H Creatinine 1.30 H Estimated Creat Clear 90 Estimated GFR 57 L Est GFR ( Amer) 68 Glucose 233 H POC Glucose 282 H Hemoglobin A1c 7.3 H Calcium 8.2 L Magnesium 1.7 Total Bilirubin 1.6 H AST 37 ALT 27 Alkaline Phosphatase 65 Troponin I 0.29 H NT-Pro-B Natriuret Pep 1720 H Total Protein 6.4 Albumin 3.7 Globulin 2.7 Albumin/Globulin Ratio 1.4 Triglycerides Cholesterol LDL Cholesterol Direct VLDL Cholesterol HDL Cholesterol Cholesterol/HDL Ratio Vitamin B12 TSH 0.94 Urine Color Urine Appearance Urine pH Ur Specific [place] Urine Protein Urine Glucose (UA) Urine Ketones Urine Blood Urine Nitrate Urine Bilirubin Urine Urobilinogen Ur Leukocyte Esterase Urine RBC Urine WBC Ur Squamous Epith Cells Urine Bacteria Hyaline Casts Urine Mucus DS: Diagnosis Discharge Diagnosis (1) Atrial fibrillation with RVR: Status: Acute Code(s): I48.91 - Unspecified atrial fibrillation (2) Elevated troponin: Status: Acute Code(s): R79.89 - Other specified abnormal findings of blood chemistry (3) Urinary tract infection: Status: Acute Code(s): N39.0 - Urinary tract infection, site not specified Meds Home Medications and Allergies Home Medications ?Medication ?Instructions ?Recorded ?Confirmed ?Type hydroxychloroquine 200 mg tablet 200 mg PO DAILY Arthritis 05/21/20 09/13/25 History leflunomide 20 mg tablet 20 mg PO DAILY Arthritis 05/21/20 09/13/25 History aspirin 81 mg tablet,delayed 81 mg PO DAILY 09/11/21 09/13/25 History release insulin aspart U-100 100 unit/mL 0 sliding scale dose SQ DIRECTED 01/27/23 09/13/25 History (3 mL) subcutaneous pen (Novolog FlexPen U-100 Insulin aspart) blood-glucose sensor (Dexcom G6 #1 ea 08/28/23 09/12/25 History Sensor device) blood-glucose transmitter (Dexcom #1 ea 08/28/23 09/12/25 History G6 Transmitter device) insulin pump cart,automated,BT #5 ea 08/28/23 09/12/25 History (Omnipod 5 G6 Pods (Gen 5) subcutaneous cartridge) blood pressure monitor #1 ea 04/24/25 09/12/25 Rx brexpiprazole 1 mg tablet (Rexulti) 1 mg PO DAILY #30 tabs 07/21/25 09/13/25 Rx cholecalciferol (vitamin D3) 25 25 mcg PO DAILY 08/17/25 09/12/25 History mcg (1,000 unit) capsule desvenlafaxine succinate 100 mg 100 mg PO DAILY 09/12/25 09/13/25 History tablet,extended release 24 hr (Pristiq) famotidine 40 mg tablet 40 mg PO DAILY 09/12/25 09/13/25 History losartan 100 mg tablet 100 mg PO DAILY 09/12/25 09/13/25 History rosuvastatin 20 mg tablet 20 mg PO DAILY 09/12/25 09/13/25 History diltiazem HCl 120 mg 120 mg PO DAILY 30 days #30 caps 09/13/25 Rx capsule,extended release 24 hr doxycycline hyclate 100 mg capsule 100 mg PO DAILY 09/13/25 09/13/25 History Held on 09/13/25. Instructions: Resume on 09/19/25. Hold until finished antibiotic course. hydroxyzine HCl 50 mg tablet 50 mg PO HS 09/13/25 09/13/25 History levofloxacin 750 mg tablet 750 mg PO DAILY 5 days #5 tabs 09/13/25 Rx meloxicam 15 mg tablet 15 mg PO DAILY PRN pain #30 tabs 09/13/25 09/13/25 Rx multivitamin 1 tab PO DAILY #30 tabs 09/13/25 Rx rivaroxaban 10 mg tablet (Xarelto) 20 mg (2 x 10 mg) PO QPMWITHMEAL 09/13/25 Rx 30 days #60 tabs New Prescriptions to Start Prescriptions: meeratiazem HCl Jabier Lo levofloxacin Jabier Lo multivitamin Jabier Lo rivaroxaban [Xarelto] Jabier Lo Allergies Allergy/AdvReac Type Severity Reaction Status Date / Time No Known Allergies Allergy Verified 08/17/25 09:02 Discharge Plan Disposition Patient Disposition: Home, Self-Care Condition: Fair Follow up Plan Follow up with: Rhea Prasad APRN [Nurse Practitioner, Cardiology] - 09/19/25 1:00 pm Laisha Kearney APRN [Primary Care Provider, Medical] - 09/29/25 11:00 am Prescriptions/Medication Reconciliation: New diltiazem HCl 120 mg Capsule,Extended Release 24hr 120 mg PO DAILY 30 Days Qty: 30 0RF Xarelto 10 mg Tablet 20 mg PO QPMWITHMEAL 30 Days Qty: 60 0RF levofloxacin 750 mg tablet 750 mg PO DAILY 5 Days Qty: 5 0RF multivitamin Tablet 1 tab PO DAILY Qty: 30 0RF Continued insulin aspart U-100 [Novolog FlexPen U-100 Insulin] 100 unit/mL (3 mL) insulin pen 0 sliding scale dose SQ DIRECTED Patient Comments: USE as directed via pump, max 150 units DAILY (DME) blood pressure monitor Kit See Rx Instructions .Route Qty: 1 0RF Rx Instructions: As directed Rexulti 1 mg tablet 1 mg PO DAILY Qty: 30 2RF cholecalciferol (vitamin D3) 25 mcg (1,000 unit) capsule 25 mcg PO DAILY hydroxychloroquine 200 mg tablet 200 mg PO DAILY leflunomide 20 mg tablet 20 mg PO DAILY (DME) Omnipod 5 G6 Pods (Gen 5) Cartridge See Rx Instructions .ROUTE .MEDSUPPLY Qty: 5 Rx Instructions: As directed (DME) Dexcom G6 Sensor Device See Rx Instructions .ROUTE .MEDSUPPLY Qty: 1 Rx Instructions: As directed (DME) Dexcom G6 Transmitter Device See Rx Instructions .ROUTE .MEDSUPPLY Qty: 1 Patient Comments: APPLY ONE TRANSMITTER DIRECTED ON TOP OF SENSOR AND REPLACE EVERY 90 DAYS Rx Instructions: As directed aspirin 81 MG tablet,delayed release (DR/EC) 81 mg PO DAILY famotidine 40 mg tablet 40 mg PO DAILY losartan 100 mg tablet 100 mg PO DAILY rosuvastatin 20 mg tablet 20 mg PO DAILY desvenlafaxine succinate [Pristiq] 100 mg tablet extended release 24 hr 100 mg PO DAILY hydroxyzine HCl 50 mg tablet 50 mg PO HS Changed meloxicam 15 mg tablet 15 mg PO DAILY PRN (Reason: pain) Qty: 30 0RF Held doxycycline hyclate 100 mg capsule 100 mg PO DAILY Hold Instructions: Resume on 09/19/25. Hold until finished antibiotic course. Discontinued amlodipine [Norvasc] 10 mg tablet 10 mg PO DAILY Qty: 30 11RF nebivolol 10 mg tablet 10 mg PO DAILY Qty: 90 3RF Problem Reconciliation Problems Reviewed?: Yes Patient Discharge Instructions Additional Instructions: Your ECHO was very reassuring, no evidence of heart strain. Your vitamin levels were normal but low, therefore I have started you on a multivitamin. Please follow-up with cardiology within 2 weeks for further evaluation and management. Patient Instructions: DI for Atrial Fibrillation, DI for Urinary Tract Infection (UTI), Stop Light Infection Print Language: German Providers Primary Care Provider: Laisha Kearney Admit Provider: Jabier Lo Attending Provider: Jabier Lo
[2025-09-13 11:46] LABS: Folate 5.21 ng/mL
--- NOTE | 2025-09-13 11:57 | CARE MANAGER ---
Met with patient and spouse at bedside this morning. They expressed that they were concerned about patient's need for an outpatient sleep study for sleep apnea, as they were told last night by staff that O2 dropped when he slept. He was seen in Dr. Chacko's office last month and was told that he needed to have an in-home sleep study, but hasn't heard anything since. I called and talked to Mandie Deras this morning and she said everything has been sent to the outside company that performs these, and that she would contact them today to let them know that this needs to be done MARIO. I updated patient on this and instructed him to call Dr. Chacko's office if he does not hear anything in 3-4 days.
--- NOTE | 2025-09-13 18:01 | CA_ITS ---
APPROVED REPORT EXAM: Comprehensive 2D, Doppler, and color-flow Echocardiogram [employer] Bever[employer] Server: Hailey Smalls CRT Ht: 5 ft 10 in Wt: 222lbs BSA: 2.18 BP: 142/70 mmHg Indications: Shortness of Breath, NSTEMI, Atrial Fibrillation, Diabetes, Hyperlipidemia, Hypertension/HDD 2D Dimensions LA Volume 33.20 mL LA Volume Index 14.90 mL/m2 (M/F) 16-34 M-Mode Dimensions RVDd 2.47 cm (0.9-2.6) LA Diam 3.58 cm (1.9-4.0) LVDd 6.11 cm (3.5-5.7) LVDs 4.21 cm (3.5-5.7) IVSd 1.29 cm (0.6-1.1) PWd 0.72 cm (0.6-1.1) EF (Teich) 57.90% FS 31.10% EDV (Teich) 187.60 mL TAPSE 2.37 (<1.7) ESV (Teich) 79.00 mL LV Diastology E Decel Time 167 (160-240 msec) E/A Ratio 0.95 MED A' 12.90 cm/s LAT A' 10.80 cm/s Aortic Valve AO Peak GR. 6.40 mmHg Mitral Valve MV A Velocity 83.0 (40-130 cm/s) E/A Ratio 0.95 Pulmonary Valve PV Peak Velocity 134.0 (50-150 cm/s) Tricuspid Valve TR P. Velocity 238.00 cm/s RAP Estimate 10.00 mmHg RVSP 32.70 mmHg Left Ventricle The left ventricle is normal size. Left ventricular systolic function is normal. The left ventricular ejection fraction is within the normal range. There is increased left ventricular wall thickness. There is normal LV segmental wall motion. The left ventricular diastolic function is normal. LVEF is 55% Right Ventricle The right ventricle is normal size. The right ventricular systolic function is normal. Atria Left atrium is mildly dilated. Right atrium is mildly dilated. There is no color Doppler evidence of interatrial shunt. Aortic Valve The aortic valve opens well. There is no hemodynamically significant aortic valvular stenosis. No aortic regurgitation is present. Mitral Valve The mitral valve is normal in structure. No evidence of mitral valve stenosis. Trace mitral regurgitation is present. Tricuspid Valve The tricuspid valve leaflets are thin and pliable. Trace tricuspid regurgitation. There is insufficient TR jet to estimate RVSP. Pulmonic Valve The pulmonary valve is grossly normal in structure. Trace pulmonic valve regurgitation is present. Great Vessels The aortic root is normal in size. IVC is normal in size and collapses >50% with inspiration. Pericardium There is a trivial, posterior pericardial effusion present. No echo indications of tamponade. Other Information Study Quality: Fair Conclusion Normal biventricular systolic function. Mild biatrial dilation. Trivial, posterior pericardial effusion present. No echo indications of tamponade. Electronically signed by : Neva Enriquez MD 09/15/2025 13:03:47
--- NOTE | 2025-09-15 10:14 | SW/DCPLANNER ---
Phoned patient x2. left message with name and contact number. Meme Robertson
== END 2025-09-13 12:32 | disposition home or self-care (01) ==
PROVIDERS: Admitting Provider Student in an Organized Health Care Education/Training Program; PCP Nurse Practitioner Family; Visit Provider Student in an Organized Health Care Education/Training Program
DX: I48.91 Unspecified atrial fibrillation (principal); I21.4 Non-ST elevation (NSTEMI) myocardial infarction; R79.89 Other specified abnormal findings of blood chemistry; N39.0 Urinary tract infection, site not specified; E11.40 Type 2 diabetes mellitus with diabetic neuropathy, unspecified; E78.5 Hyperlipidemia, unspecified; I10 Essential (primary) hypertension; Z82.49 Family history of ischemic heart disease and other diseases of the circulatory system; Z79.4 Long term (current) use of insulin; Z79.82 Long term (current) use of aspirin; I44.0 Atrioventricular block, first degree; I49.3 Ventricular premature depolarization; R53.1 Weakness
CPT/HCPCS: 36415; 71045; 80053; 80061; 81001; 82607; 82746; 82962; 83036; 83735; 83880; 84443; 84484; 85025; 87040; 87086; 93005; 93270; 93306; 93970; G0378; J0696; J1650; J3475